=== PATIENT | female | born 1980 | race Caucasian/White ===

== ENCOUNTER → 2016-10-31 | Outpatient (CLI) | payer OTHER ==
[~2016-10-31] VITALS: Ht 165.1 cm; Wt 68.2 kg
[~2016-10-31] MED LIST: ACHD5005 PO; ACHYD1T PO; ADAL40PE2 SQ; ALPR0.254 PO; AMIT25TA9 PO; ASPI1TAB17 PO; ASPI1TAB22 PO; AZAT50TA16 PO; BCP PO; BUDE9TAB PO; CALC625T66 PO; CIPR500T4 PO; CIPR500T78 PO; CPR250T PO; CPR500T PO; DCS100C PO; DICY10CA26 PO; DIPH1TAB25 PO; DIPH25TA82 PO; DIPH50CA33 PO; DULO30CA3 PO; DULO60CA58 PO; ESTR-19 PO; ESTR-6 PO; FIBER SUPPLEMENT PO; FLUO10CA19 PO; FLUO20CA25 PO; FLUO40CA PO; FOLI-88 PO; HYDR-2890 PO; HYDR-3583 PO; HYDR-3714 PO; HYDR-3720 PO; HYDR-757 PO; HYDR1TAB66 PO; IBUP800T26 PO; KETO10TA77 PO; LACT1CAP8 PO; LINA145C PO; LORA10TA7 PO; LUBI8CAP PO; MESA1.2T PO; MESA1.2T2 PO; MESA800T PO; METO-272 PO; METR500T PO; METR500T17 PO; MINASTRIN 24 FE PO; MSL250CCR PO; MSL400TEC PO; MULT1CAP27 PO; NORE-43 PO; NORE1TAB95 PO; NORG1TAB7 PO; NORT25CA PO; NRT10C PO; NS IV 1000 ML 1,000 ML IV ONE; OMEP20CA12 PO; OXC5T PO; OXYC-199 PO; OXYC-272 PO; OXYC10TA7 PO; OXYC5CAP4 PO; PANT40TA PO; PNT40TEC PO; POTA99TA7 PO; PRD10T PO; PRD20T PO; PRM25T PO; PROBIOTIC1 EACH PO; PROCHLORPERAZINE 10 MG/2ML INJ (COMPAZINE) IV ONE; PS30T PO; RANI150T90 PO; SPRINTEC PO; SULF1TAB35 PO; SUMA100T2 PO; TMZP15C PO; VENL150C PO; VENL150C53 PO; [UNRECOGNIZED DRUG - CODE] PO; [UNRECOGNIZED DRUG - OTHER] PO; [UNRECOGNIZED DRUG - REMARK] PO; fentaNYL INJECTION 100 MCG/2 ML AMP IV ONE; fentaNYL INJECTION 100 MCG/2 ML AMP IV PRN; fentaNYL INJECTION 100 MCG/2 ML AMP IVP ONE; linzess PO; methylPREDNISolone 125 MG (Solu-MEDROL) VIAL IV ONE
[2016-10-31 10:30] VITALS: BP 137/93
[2016-10-31 10:44] LABS: MEAN PLATELET VOLUME 10.6 FL (7.4-10.4); RED BLOOD COUNT 4.81 10^6/uL (4.35-5.85); WHITE BLOOD COUNT 4.5 10^3/uL (4.3-11.0)
[2016-10-31 11:05] LABS: ALANINE AMINOTRANSFERASE 12 U/L (0-55); ALBUMIN 4.3 G/DL (3.2-4.5); ANION GAP 9 MMOL/L (5-14); ASPARTATE AMINO TRANSFERASE 15 U/L (5-34); BILIRUBIN,TOTAL 0.3 MG/DL (0.1-1.0); BLOOD UREA NITROGEN 9 MG/DL (7-18); BUN/CREATININE RATIO 12; CALCIUM 9.2 MG/DL (8.5-10.1); CARBON DIOXIDE 27 MMOL/L (21-32); CHLORIDE 105 MMOL/L (98-107); CREATININE SERUM 0.76 MG/DL (0.60-1.30); GFR ESTIMATED > 60; GLUCOSE 83 MG/DL (70-105); POTASSIUM 3.5 MMOL/L (3.6-5.0); SODIUM 141 MMOL/L (135-145); TOTAL PROTEIN 7.3 G/DL (6.4-8.2)
[2016-10-31 13:00] VITALS: BP 137/93
== END ==
LOC: SDC 10:16
PROVIDERS: ATTEND Nurse Practitioner Family
DX: K50.90 Crohn's disease, unspecified, without complications (principal)
CPT/HCPCS: 36415; 80053; 85027; 96360

== ENCOUNTER 2016-11-26 10:51 | Outpatient (CLI) | payer OTHER ==
[~2016-11-26] VITALS: Ht 165.1 cm; Wt 68.2 kg
[~2016-11-26 10:51] MED LIST changes: -NS IV 1000 ML 1,000 ML IV ONE; -PROCHLORPERAZINE 10 MG/2ML INJ (COMPAZINE) IV ONE; -fentaNYL INJECTION 100 MCG/2 ML AMP IV ONE; -fentaNYL INJECTION 100 MCG/2 ML AMP IV PRN; -fentaNYL INJECTION 100 MCG/2 ML AMP IVP ONE; -methylPREDNISolone 125 MG (Solu-MEDROL) VIAL IV ONE
[2016-11-26 10:53] VITALS: BP 152/92
[2016-11-26] MEDS ORDERED: methylPREDNISolone 125 MG (Solu-MEDROL) VIAL IV ONE (11:15)
[2016-11-26] MEDS ORDERED: fentaNYL INJECTION 100 MCG/2 ML AMP IV ONE ×2 (11:15→11:30)
[2016-11-26] MEDS ORDERED: PROMETHAZINE INJ 25 MG/ML (PHENERGAN) AMP IV ONE (11:15)
[2016-11-26] MEDS ORDERED: NS IV 1000 ML 1,000 ML IV ONE (11:15)
[2016-11-26] MEDS ORDERED: CATHETER FLUSH 10 ML SYR IV PRN (11:15)
[2016-11-26 12:15] LABS: ANION GAP 9 MMOL/L (5-14); BLOOD UREA NITROGEN 8 MG/DL (7-18); BUN/CREATININE RATIO 11; CARBON DIOXIDE 22 MMOL/L (21-32); CHLORIDE 108 MMOL/L (98-107); GFR ESTIMATED > 60; GLUCOSE 101 MG/DL (70-105); POTASSIUM 3.8 MMOL/L (3.6-5.0); SODIUM 139 MMOL/L (135-145)
== END 2016-11-26 12:35 | disposition home or self-care (01) ==
LOC: SDC 10:51
PROVIDERS: ATTEND Nurse Practitioner Family
DX: K50.90 Crohn's disease, unspecified, without complications (principal)
CPT/HCPCS: 36415; 80048; 85014; 85018

== ENCOUNTER → 2017-01-01 | Outpatient (CLI) | payer OTHER ==
[~2017-01-01] VITALS: Ht 165.1 cm; Wt 68.2 kg
[~2017-01-01] MED LIST changes: +NS IV 1000 ML 1,000 ML IV ONE; +NS IV 1000 ML 1,000 ML ONE; +ONDANSETRON 4 MG/2 ML (SDV) Z0FRAN IV ONE; +ONDANSETRON 4 MG/2 ML (SDV) Z0FRAN IV PRN; +ONDANSETRON 4 MG/2 ML (SDV) Z0FRAN ONE; +fentaNYL INJECTION 100 MCG/2 ML AMP IV SCH; +fentaNYL INJECTION 100 MCG/2 ML AMP ONE; +methylPREDNISolone 125 MG (Solu-MEDROL) VIAL IV ONE; +methylPREDNISolone 125 MG (Solu-MEDROL) VIAL ONE
[2017-01-01 12:50] VITALS: BP 143/93
== END ==
LOC: SDC 11:51
PROVIDERS: ATTEND Nurse Practitioner Family
DX: K50.90 Crohn's disease, unspecified, without complications (principal)
CPT/HCPCS: 96360; 96374; 96375

== ENCOUNTER → 2017-01-02 | Outpatient (CLI) | payer OTHER ==
[~2017-01-02] VITALS: Ht 165.1 cm; Wt 68.2 kg
[~2017-01-02] MED LIST changes: +CATHETER FLUSH 10 ML SYR IV PRN; +IOHEXOL 350 MG/ML 100 ML (OMNIPAQUE 350) VIAL IV ONE; +NS 100 ML (IVPB) BAG IV ONE; -NS IV 1000 ML 1,000 ML ONE; -ONDANSETRON 4 MG/2 ML (SDV) Z0FRAN ONE; +fentaNYL INJECTION 100 MCG/2 ML AMP IV PRN; -fentaNYL INJECTION 100 MCG/2 ML AMP IV SCH; -fentaNYL INJECTION 100 MCG/2 ML AMP ONE; -methylPREDNISolone 125 MG (Solu-MEDROL) VIAL IV ONE; -methylPREDNISolone 125 MG (Solu-MEDROL) VIAL ONE
--- NOTE | 2017-01-02 13:21 | Diagnostic Imaging Report ---
PROCEDURE: CT abdomen and pelvis with contrast. TECHNIQUE: Multiple contiguous axial images were obtained through the abdomen and pelvis after administration of intravenous contrast. INDICATION: Right lower quadrant pain radiating to the right chest, history of Crohn's disease. COMPARISON: 09/24/2015. DISCUSSION: The lung bases are well aerated. Normal heart size. No pleural or pericardial fluid. The gallbladder is contracted. The liver, stomach, pancreas, spleen, adrenal glands, kidneys, and urinary bladder are unremarkable. The uterus is surgically absent. No obstruction, pneumatosis, or pneumoperitoneum. There is no marked inflammatory change or wall thickening noted within the large or small bowel to suggest the presence of active Crohn's disease at this time. Shotty mesenteric lymph nodes are stable. Mild constipation is noted within the proximal colon. No ascites. No acute osseous abnormality identified. IMPRESSION: 1. No inflammatory process identified to suggest active Crohn's disease at this time. 2. Mild constipation within the proximal colon. Dictated by: Dictated on workstation # [id number]
[2017-01-02 13:51] LABS: MEAN PLATELET VOLUME 10.6 FL (7.4-10.4); RED BLOOD COUNT 4.09 10^6/uL (4.35-5.85); RED CELL DISTRIBUTION WIDTH 14.7 % (10.0-14.5); WHITE BLOOD COUNT 17.3 10^3/uL (4.3-11.0)
[2017-01-02 14:12] LABS: ALANINE AMINOTRANSFERASE 11 U/L (0-55); ALBUMIN 3.8 GM/DL (3.2-4.5); ANION GAP 13 MMOL/L (5-14); ASPARTATE AMINO TRANSFERASE 12 U/L (5-34); BILIRUBIN,TOTAL < 0.1 MG/DL (0.1-1.0); BLOOD UREA NITROGEN 11 MG/DL (7-18); BUN/CREATININE RATIO 16 (0-20); CALCIUM 9.1 MG/DL (8.5-10.1); CARBON DIOXIDE 21 MMOL/L (21-32); CHLORIDE 105 MMOL/L (98-107); CREATININE SERUM 0.69 MG/DL (0.60-1.30); GFR ESTIMATED > 60; GLUCOSE 94 MG/DL (70-105); HEMOLYSIS 4 (-100-29); ICTERUS 0.1 (-100-1.9); LIPEMIA 24 (-100-49); POTASSIUM 3.4 MMOL/L (3.6-5.0); SODIUM 139 MMOL/L (135-145)
[2017-01-02 15:19] VITALS: BP 151/101
== END ==
LOC: RAD 12:24
PROVIDERS: ATTEND Nurse Practitioner Family
DX: R10.11 Right upper quadrant pain (principal); R10.31 Right lower quadrant pain
CPT/HCPCS: 36415; 74177; 80053; 85027

== ENCOUNTER 2017-03-30 13:10 | Outpatient (RCR) | payer OTHER ==
[2017-02-18 12:19] LABS: ALANINE AMINOTRANSFERASE 20 U/L (0-55); ALBUMIN 4.5 GM/DL (3.2-4.5); ANION GAP 10 MMOL/L (5-14); ASPARTATE AMINO TRANSFERASE 16 U/L (5-34); BILIRUBIN,TOTAL 0.2 MG/DL (0.1-1.0); BLOOD UREA NITROGEN 13 MG/DL (7-18); BUN/CREATININE RATIO 18; CALCIUM 9.8 MG/DL (8.5-10.1); CARBON DIOXIDE 26 MMOL/L (21-32); CHLORIDE 105 MMOL/L (98-107); CREATININE SERUM 0.71 MG/DL (0.60-1.30); GFR ESTIMATED > 60; GLUCOSE 83 MG/DL (70-105); POTASSIUM 3.8 MMOL/L (3.6-5.0); SODIUM 141 MMOL/L (135-145); TOTAL PROTEIN 7.8 GM/DL (6.4-8.2)
[2017-02-18 12:55] VITALS: BP 139/96
[~2017-03-30] VITALS: Ht 165.1 cm; Wt 68.2 kg
[~2017-03-30 13:10] MED LIST changes: -CATHETER FLUSH 10 ML SYR IV PRN; -IOHEXOL 350 MG/ML 100 ML (OMNIPAQUE 350) VIAL IV ONE; +NFNEB10T PO; -NS 100 ML (IVPB) BAG IV ONE; +NS IV 1000 ML 1,000 ML ONE; -ONDANSETRON 4 MG/2 ML (SDV) Z0FRAN IV PRN; +PROMETHAZINE INJ 25 MG/ML (PHENERGAN) AMP IVP ONE; +PROMETHAZINE INJ 25 MG/ML (PHENERGAN) AMP ONE; +fentaNYL INJECTION 100 MCG/2 ML AMP IV ONE; -fentaNYL INJECTION 100 MCG/2 ML AMP IV PRN; +methylPREDNISolone 125 MG (Solu-MEDROL) VIAL IV ONE
[2017-03-30] MEDS ORDERED: fentaNYL INJECTION 100 MCG/2 ML AMP IV PRN (13:30)
[2017-03-30] MEDS ORDERED: PROMETHAZINE INJ 25 MG/ML (PHENERGAN) AMP IV PRN (13:30)
[2017-03-30] MEDS ORDERED: methylPREDNISolone 125 MG (Solu-MEDROL) VIAL IV ONE (13:30)
[2017-03-30] MEDS ORDERED: ONDANSETRON 4 MG/2 ML (SDV) Z0FRAN IV PRN (13:45)
[2017-03-30] MEDS ORDERED: NS IV 1000 ML 1,000 ML IV ONE (13:45)
[2017-03-30 14:06] VITALS: BP 149/99
[2017-03-30 15:05] VITALS: BP 149/99
== END 2017-04-18 | disposition home or self-care (01) ==
LOC: SDC 13:10
PROVIDERS: ATTEND Nurse Practitioner Family
DX: K50.90 Crohn's disease, unspecified, without complications (principal)
CPT/HCPCS: 36415; 80053; 96360; 96365; 96375

== ENCOUNTER 2017-05-07 09:44 | Outpatient (RCR) | payer OTHER ==
[~2017-05-07] VITALS: Ht 165.1 cm; Wt 68.2 kg
[~2017-05-07 09:44] MED LIST changes: -METO-272 PO; +METO-370 PO; -NS IV 1000 ML 1,000 ML IV ONE; -NS IV 1000 ML 1,000 ML ONE; -ONDANSETRON 4 MG/2 ML (SDV) Z0FRAN IV ONE; -PROMETHAZINE INJ 25 MG/ML (PHENERGAN) AMP IVP ONE; -PROMETHAZINE INJ 25 MG/ML (PHENERGAN) AMP ONE; -fentaNYL INJECTION 100 MCG/2 ML AMP IV ONE; -methylPREDNISolone 125 MG (Solu-MEDROL) VIAL IV ONE
[2017-05-07] MEDS ORDERED: methylPREDNISolone 125 MG (Solu-MEDROL) VIAL IV ONE (10:00)
[2017-05-07] MEDS ORDERED: ONDANSETRON 4 MG/2 ML (SDV) Z0FRAN IV PRN (10:00)
[2017-05-07] MEDS ORDERED: NS IV 1000 ML 1,000 ML IV NR (10:00)
[2017-05-07] MEDS: fentaNYL INJECTION 100 MCG/2 ML AMP IV PRN ×2 (10:10→10:43)
[2017-05-07] MEDS ORDERED: PROMETHAZINE INJ 25 MG/ML (PHENERGAN) AMP IVP ONE ×2 (10:15→11:45)
[2017-05-07 10:53] VITALS: BP 149/102
[2017-05-07] MEDS ORDERED: fentaNYL INJECTION 100 MCG/2 ML AMP IVP ONE (12:45)
[2017-05-07] MEDS ORDERED: NS IV 500 ML 500 ML IV SCH (12:45)
== END 2017-05-07 13:23 | disposition home or self-care (01) ==
LOC: SDC 09:44
PROVIDERS: ATTEND Nurse Practitioner Family
DX: K50.90 Crohn's disease, unspecified, without complications (principal)
CPT/HCPCS: 96360; 96361; 96374; 96375; 96376

== ENCOUNTER → 2017-06-08 | Outpatient (CLI) | payer OTHER ==
[~2017-06-08] VITALS: Ht 165.1 cm; Wt 61.2 kg
[~2017-06-08] MED LIST changes: +NS IV 1000 ML 1,000 ML IV NR; +NS IV 1000 ML 1,000 ML ONE; +ONDANSETRON 4 MG/2 ML (SDV) Z0FRAN IV PRN; +PROMETHAZINE INJ 25 MG/ML (PHENERGAN) AMP IV PRN; +PROMETHAZINE INJ 25 MG/ML (PHENERGAN) AMP ONE; +methylPREDNISolone 125 MG (Solu-MEDROL) VIAL IV NR; +methylPREDNISolone 125 MG (Solu-MEDROL) VIAL ONE
[2017-06-08 11:34] VITALS: BP 159/104
[2017-06-08] MEDS: fentaNYL INJECTION 100 MCG/2 ML AMP ONE (12:15)
[2017-06-08] MEDS: fentaNYL INJECTION 100 MCG/2 ML AMP IV PRN ×2 (12:37→12:58)
[2017-06-08 13:10] VITALS: BP 159/104
== END ==
LOC: SDC 11:30
PROVIDERS: ATTEND Nurse Practitioner Family
DX: K50.90 Crohn's disease, unspecified, without complications (principal); R11.0 Nausea
CPT/HCPCS: 96360; 96375

== ENCOUNTER → 2017-07-07 | Outpatient (CLI) | payer OTHER ==
[~2017-07-07] VITALS: Ht 165.1 cm; Wt 61.2 kg
[~2017-07-07] MED LIST changes: -NS IV 1000 ML 1,000 ML ONE; -PROMETHAZINE INJ 25 MG/ML (PHENERGAN) AMP ONE; -methylPREDNISolone 125 MG (Solu-MEDROL) VIAL ONE
[2017-07-07 13:30] VITALS: BP 160/102
[2017-07-07] MEDS: fentaNYL INJECTION 100 MCG/2 ML AMP IV PRN ×2 (14:08→15:05)
[2017-07-07 15:40] VITALS: BP 160/102
== END ==
LOC: SDC 13:28
PROVIDERS: ATTEND Nurse Practitioner Family
DX: K52.9 Noninfective gastroenteritis and colitis, unspecified (principal)
CPT/HCPCS: 96360; 96367; 96375

== ENCOUNTER → 2017-08-07 | Outpatient (CLI) | payer OTHER ==
[~2017-08-07] VITALS: Ht 165.1 cm; Wt 61.2 kg
[~2017-08-07] MED LIST changes: -NS IV 1000 ML 1,000 ML IV NR; +NS IV 1000 ML 1,000 ML ONE; +NS IV 1000 ML IV ONE; +ONDANSETRON 4 MG/2 ML (SDV) Z0FRAN IV ONE; -ONDANSETRON 4 MG/2 ML (SDV) Z0FRAN IV PRN; +PROMETHAZINE INJ 25 MG/ML (PHENERGAN) AMP IV ONE; -PROMETHAZINE INJ 25 MG/ML (PHENERGAN) AMP IV PRN; +fentaNYL INJECTION 100 MCG/2 ML AMP IV ONE; -methylPREDNISolone 125 MG (Solu-MEDROL) VIAL IV NR; +methylPREDNISolone 125 MG (Solu-MEDROL) VIAL IV ONE
[2017-08-07 14:27] VITALS: BP 135/89
== END ==
LOC: SDC 12:13
PROVIDERS: ATTEND Nurse Practitioner Family
DX: K50.90 Crohn's disease, unspecified, without complications (principal)
CPT/HCPCS: 96360; 96367; 96375

== ENCOUNTER 2017-10-05 13:04 | Outpatient (CLI) | payer OTHER ==
[~2017-10-05] VITALS: Ht 165.1 cm; Wt 61.2 kg
[~2017-10-05 13:04] MED LIST changes: -NS IV 1000 ML 1,000 ML ONE; -NS IV 1000 ML IV ONE; -ONDANSETRON 4 MG/2 ML (SDV) Z0FRAN IV ONE; -PROMETHAZINE INJ 25 MG/ML (PHENERGAN) AMP IV ONE; -fentaNYL INJECTION 100 MCG/2 ML AMP IV ONE; -methylPREDNISolone 125 MG (Solu-MEDROL) VIAL IV ONE
[2017-10-05 13:08] VITALS: BP 139/88
[2017-10-05] MEDS ORDERED: PROMETHAZINE INJ 25 MG/ML (PHENERGAN) AMP IV ONE (13:30)
[2017-10-05] MEDS ORDERED: methylPREDNISolone 125 MG (Solu-MEDROL) VIAL IV ONE (13:30)
[2017-10-05] MEDS ORDERED: ONDANSETRON 4 MG/2 ML (SDV) Z0FRAN IV ONE (13:30)
[2017-10-05] MEDS ORDERED: NS IV 1000 ML 1,000 ML IV ONE (13:30)
[2017-10-05] MEDS: fentaNYL INJECTION 100 MCG/2 ML AMP IV PRN ×2 (13:42→14:17)
== END 2017-10-05 14:40 | disposition home or self-care (01) ==
LOC: SDC 13:04
PROVIDERS: ATTEND Nurse Practitioner Family
DX: K50.90 Crohn's disease, unspecified, without complications (principal)
CPT/HCPCS: 96360; 96375; 96376

== ENCOUNTER → 2017-10-16 | Day surgery (SDC) | payer OTHER ==
[~2017-10-16] VITALS: Ht 165.1 cm; Wt 61.2 kg
[~2017-10-16] MED LIST changes: +FENT1PAT8 TD; +METO10TA3 PO; +NS IV 1000 ML 1,000 ML IV ONE; +NS IV 1000 ML 1,000 ML ONE; +ONDANSETRON 4 MG/2 ML (SDV) Z0FRAN IV PRN; +OXYC15TA79 PO; +PROMETHAZINE INJ 25 MG/ML (PHENERGAN) AMP IV PRN; +methylPREDNISolone 125 MG (Solu-MEDROL) VIAL IV ONE
[2017-10-16 14:00] VITALS: BP 144/77
[2017-10-16] MEDS: fentaNYL INJECTION 100 MCG/2 ML AMP IV PRN ×2 (14:27→15:15)
[2017-10-16 15:33] VITALS: BP 144/77
== END ==
LOC: SDC 13:43
PROVIDERS: ATTEND Nurse Practitioner Family
DX: K50.90 Crohn's disease, unspecified, without complications (principal)

== ENCOUNTER → 2017-11-02 | Outpatient (CLI) | payer OTHER ==
[~2017-11-02] VITALS: Ht 165.1 cm; Wt 63.5 kg
[~2017-11-02] MED LIST changes: +CHOL210P2 PO; +FAMO20TA5 PO; +FEN12TD TD; +ONDANSETRON 4 MG/2 ML (SDV) Z0FRAN ONE; +PROMETHAZINE INJ 25 MG/ML (PHENERGAN) AMP ONE; +fentaNYL INJECTION 100 MCG/2 ML AMP ONE; +methylPREDNISolone 125 MG (Solu-MEDROL) VIAL ONE
[2017-11-02 09:40] VITALS: BP 141/93
[2017-11-02] MEDS: fentaNYL INJECTION 100 MCG/2 ML AMP ONE (10:06)
[2017-11-02] MEDS: fentaNYL INJECTION 100 MCG/2 ML AMP IV PRN ×3 (10:30→11:19)
[2017-11-02 11:45] VITALS: BP 141/93
== END ==
LOC: SDC 09:12
PROVIDERS: ATTEND Nurse Practitioner Family
DX: K50.90 Crohn's disease, unspecified, without complications (principal); R11.0 Nausea
CPT/HCPCS: 96360; 96361; 96375

== ENCOUNTER → 2017-11-23 | Outpatient (CLI) | payer OTHER ==
[~2017-11-23] VITALS: Ht 165.1 cm; Wt 63.5 kg
[~2017-11-23] MED LIST changes: +NS IV 1000 ML 1,000 ML IV NR; -NS IV 1000 ML 1,000 ML IV ONE; -NS IV 1000 ML 1,000 ML ONE; -ONDANSETRON 4 MG/2 ML (SDV) Z0FRAN ONE; -PROMETHAZINE INJ 25 MG/ML (PHENERGAN) AMP ONE; -fentaNYL INJECTION 100 MCG/2 ML AMP ONE; +methylPREDNISolone 125 MG (Solu-MEDROL) VIAL IV NR; -methylPREDNISolone 125 MG (Solu-MEDROL) VIAL IV ONE; -methylPREDNISolone 125 MG (Solu-MEDROL) VIAL ONE
[2017-11-23] MEDS: fentaNYL INJECTION 100 MCG/2 ML AMP IV PRN ×2 (11:06→11:35)
[2017-11-23 11:50] VITALS: BP 136/90
== END ==
LOC: SDC 09:45
PROVIDERS: ATTEND Nurse Practitioner Family
DX: K50.90 Crohn's disease, unspecified, without complications (principal); R19.7 Diarrhea, unspecified; R11.0 Nausea
CPT/HCPCS: 96361; 96374; 96375

== ENCOUNTER → 2018-03-02 | Outpatient (RCR) | payer OTHER ==
[2017-12-02 14:50] VITALS: BP 147/90
[2017-12-31] MEDS: fentaNYL INJECTION 100 MCG/2 ML AMP IV PRN ×2 (13:38→14:59)
[2018-01-26] MEDS: NS IV 1000 ML 1,000 ML IV SCH (10:58)
[2018-01-26] MEDS: PROMETHAZINE INJ 25 MG/ML (PHENERGAN) AMP IVP PRN (11:10)
[2018-01-26] MEDS: fentaNYL INJECTION 100 MCG/2 ML AMP IV PRN ×2 (11:12→11:55)
[2018-01-26 12:10] VITALS: BP 140/94
[2018-02-08] MEDS: NS IV 1000 ML 1,000 ML IV SCH (09:30)
[2018-02-08] MEDS: fentaNYL INJECTION 100 MCG/2 ML AMP IV PRN ×2 (09:45→10:30)
[2018-02-08] MEDS: PROMETHAZINE INJ 25 MG/ML (PHENERGAN) AMP IVP PRN (09:47)
[2018-02-08 10:47] VITALS: BP 157/104
[2018-02-09] MEDS: NS IV 1000 ML 1,000 ML IV SCH (08:20)
[2018-02-09] MEDS: fentaNYL INJECTION 100 MCG/2 ML AMP IV PRN ×2 (08:25→09:01)
[2018-02-09] MEDS: ONDANSETRON 4 MG/2 ML (SDV) Z0FRAN IV PRN (08:27)
[2018-02-09 09:23] VITALS: BP 149/98
[2018-02-12 13:00] VITALS: BP 160/95
[2018-02-12] MEDS: NS IV 1000 ML 1,000 ML IV SCH (13:15)
[2018-02-12] MEDS: fentaNYL INJECTION 100 MCG/2 ML AMP IV PRN ×2 (13:33→14:20)
[2018-02-12] MEDS: PROMETHAZINE INJ 25 MG/ML (PHENERGAN) AMP IVP PRN (13:33)
[2018-02-12 14:23] VITALS: BP 160/95
[2018-03-01] MEDS: NS IV 1000 ML 1,000 ML IV SCH (11:03)
[2018-03-01] MEDS: methylPREDNISolone 125 MG (Solu-MEDROL) VIAL IV PRN (11:04)
[2018-03-01] MEDS: fentaNYL INJECTION 100 MCG/2 ML AMP IV PRN ×2 (11:07→11:43)
[2018-03-01] MEDS: PROMETHAZINE INJ 25 MG/ML (PHENERGAN) AMP IVP PRN (11:09)
[2018-03-01 11:18] VITALS: BP 152/104
[~2018-03-02] VITALS: Ht 165.1 cm; Wt 63.5 kg
[~2018-03-02] MED LIST changes: -NS IV 1000 ML 1,000 ML IV NR; +NS IV 1000 ML 1,000 ML IV ONE; +NS IV 1000 ML 1,000 ML IV SCH; +NS IV 1000 ML 1,000 ML ONE; +ONDANSETRON 4 MG/2 ML (SDV) Z0FRAN IV ONE; +ONDANSETRON 4 MG/2 ML (SDV) Z0FRAN IV SCH; -PROMETHAZINE INJ 25 MG/ML (PHENERGAN) AMP IV PRN; +PROMETHAZINE INJ 25 MG/ML (PHENERGAN) AMP IVP ONE; +PROMETHAZINE INJ 25 MG/ML (PHENERGAN) AMP ONE; +fentaNYL INJECTION 100 MCG/2 ML AMP IV ONE; +fentaNYL INJECTION 100 MCG/2 ML AMP IV PRN; +fentaNYL INJECTION 100 MCG/2 ML AMP IVP ONE; -methylPREDNISolone 125 MG (Solu-MEDROL) VIAL IV NR; +methylPREDNISolone 125 MG (Solu-MEDROL) VIAL IV ONE; +methylPREDNISolone 125 MG (Solu-MEDROL) VIAL IV SCH
[2018-03-02] MEDS: NS IV 1000 ML 1,000 ML IV SCH (11:08)
[2018-03-02] MEDS: fentaNYL INJECTION 100 MCG/2 ML AMP IV PRN ×3 (11:09→12:12)
[2018-03-02] MEDS: ONDANSETRON 4 MG/2 ML (SDV) Z0FRAN IV PRN ×2 (11:09→11:16)
[2018-03-02] MEDS: PROMETHAZINE INJ 25 MG/ML (PHENERGAN) AMP IVP PRN ×2 (11:09→11:16)
[2018-03-02 11:38] VITALS: BP 161/104
[2018-03-02] MEDS: methylPREDNISolone 125 MG (Solu-MEDROL) VIAL IV PRN (12:12)
== END | disposition home or self-care (01) ==
LOC: SDC 12-02 14:41
PROVIDERS: ATTEND Family Medicine
DX: K50.90 Crohn's disease, unspecified, without complications (principal)
CPT/HCPCS: 96361; 96374; 96375; 96376

== ENCOUNTER 2018-04-13 08:18 | Outpatient (RCR) | payer OTHER ==
[2018-03-03] MEDS: NS IV 1000 ML 1,000 ML IV PRN (09:10)
[2018-03-03 09:20] VITALS: BP 150/107
[2018-03-03] MEDS: PROMETHAZINE INJ 25 MG/ML (PHENERGAN) AMP IV PRN (10:13)
[2018-03-03] MEDS: fentaNYL INJECTION 100 MCG/2 ML AMP IV PRN ×2 (10:13→10:49)
[2018-03-10 08:05] VITALS: BP 142/92
[2018-03-10] MEDS: NS IV 1000 ML 1,000 ML IV PRN (08:20)
[2018-03-10] MEDS: PROMETHAZINE INJ 25 MG/ML (PHENERGAN) AMP IV PRN ×2 (08:21→08:32)
[2018-03-10] MEDS: ONDANSETRON 4 MG/2 ML (SDV) Z0FRAN IV PRN ×2 (08:21→08:32)
[2018-03-10] MEDS: fentaNYL INJECTION 100 MCG/2 ML AMP IV PRN ×2 (08:21→08:30)
[2018-03-10] MEDS: methylPREDNISolone 125 MG (Solu-MEDROL) VIAL IV PRN (08:21)
[2018-03-10 09:50] VITALS: BP 142/92
[2018-03-11] MEDS: ONDANSETRON 4 MG/2 ML (SDV) Z0FRAN IV PRN (09:19)
[2018-03-11] MEDS: fentaNYL INJECTION 100 MCG/2 ML AMP IV PRN ×2 (09:22→10:16)
[2018-03-11] MEDS: methylPREDNISolone 125 MG (Solu-MEDROL) VIAL IV PRN (09:24)
[2018-03-11] MEDS: PROMETHAZINE INJ 25 MG/ML (PHENERGAN) AMP IV PRN ×2 (09:32→10:25)
[2018-03-11 10:55] VITALS: BP 141/90
[2018-04-07] MEDS: fentaNYL INJECTION 100 MCG/2 ML AMP IV PRN ×2 (11:52→12:00)
[2018-04-07] MEDS: PROMETHAZINE INJ 25 MG/ML (PHENERGAN) AMP IV PRN ×2 (11:52→11:58)
[2018-04-07] MEDS: methylPREDNISolone 125 MG (Solu-MEDROL) VIAL IV PRN (11:52)
[2018-04-07] MEDS: NS IV 1000 ML 1,000 ML IV PRN (11:52)
[2018-04-07] MEDS: ONDANSETRON 4 MG/2 ML (SDV) Z0FRAN IV PRN (11:52)
[2018-04-07 12:26] VITALS: BP 124/92
[2018-04-12 09:00] VITALS: BP 144/103
[2018-04-12] MEDS: NS IV 1000 ML 1,000 ML IV PRN (09:11)
[2018-04-12] MEDS: fentaNYL INJECTION 100 MCG/2 ML AMP IV PRN ×2 (09:11→10:05)
[2018-04-12] MEDS: ONDANSETRON 4 MG/2 ML (SDV) Z0FRAN IV PRN ×2 (09:11→10:04)
[2018-04-12] MEDS: PROMETHAZINE INJ 25 MG/ML (PHENERGAN) AMP IV PRN ×2 (09:20→10:12)
[2018-04-12 10:20] VITALS: BP 148/101
[~2018-04-13] VITALS: Ht 165.1 cm; Wt 63.5 kg
[~2018-04-13 08:18] MED LIST changes: +HYDR-4226 PO; -HYDR-757 PO; -NS IV 1000 ML 1,000 ML IV ONE; -NS IV 1000 ML 1,000 ML IV SCH; -ONDANSETRON 4 MG/2 ML (SDV) Z0FRAN IV ONE; -ONDANSETRON 4 MG/2 ML (SDV) Z0FRAN IV PRN; -ONDANSETRON 4 MG/2 ML (SDV) Z0FRAN IV SCH; -PROMETHAZINE INJ 25 MG/ML (PHENERGAN) AMP IVP ONE; -PROMETHAZINE INJ 25 MG/ML (PHENERGAN) AMP ONE; -fentaNYL INJECTION 100 MCG/2 ML AMP IV ONE; -fentaNYL INJECTION 100 MCG/2 ML AMP IV PRN; -fentaNYL INJECTION 100 MCG/2 ML AMP IVP ONE; -methylPREDNISolone 125 MG (Solu-MEDROL) VIAL IV ONE; -methylPREDNISolone 125 MG (Solu-MEDROL) VIAL IV SCH
[2018-04-13 08:19] VITALS: BP 130/97
[2018-04-13] MEDS: ONDANSETRON 4 MG/2 ML (SDV) Z0FRAN IV PRN ×2 (08:35→09:16)
[2018-04-13] MEDS: PROMETHAZINE INJ 25 MG/ML (PHENERGAN) AMP IV PRN ×2 (08:35→09:16)
[2018-04-13] MEDS: fentaNYL INJECTION 100 MCG/2 ML AMP IV PRN ×2 (08:35→09:19)
[2018-04-13] MEDS: NS IV 1000 ML 1,000 ML IV PRN (08:35)
== END 2018-04-13 10:03 | disposition home or self-care (01) ==
LOC: SDC 08:18
PROVIDERS: ATTEND Family Medicine
DX: K50.90 Crohn's disease, unspecified, without complications (principal)
CPT/HCPCS: 96361; 96374; 96375; 96376

== ENCOUNTER 2018-04-29 16:06 | Outpatient (RCR) | payer OTHER ==
[~2018-04-29] VITALS: Ht 165.1 cm; Wt 63.5 kg
[~2018-04-29 16:06] MED LIST changes: -NS IV 1000 ML 1,000 ML ONE
[2018-04-29] MEDS ORDERED: NS IV 1000 ML 1,000 ML ONE (16:21)
[2018-04-29] MEDS ORDERED: methylPREDNISolone 125 MG (Solu-MEDROL) VIAL IVP NR (16:26)
[2018-04-29] MEDS ORDERED: PROMETHAZINE INJ 25 MG/ML (PHENERGAN) AMP IVP PRN (16:30)
[2018-04-29] MEDS ORDERED: NS IV 1000 ML 1,000 ML IV SCH (16:30)
[2018-04-29] MEDS ORDERED: ONDANSETRON 4 MG/2 ML (SDV) Z0FRAN IVP PRN (16:30)
[2018-04-29] MEDS: fentaNYL INJECTION 100 MCG/2 ML AMP IVP PRN ×2 (16:44→17:30)
[2018-04-29 18:25] VITALS: BP 156/101
== END 2018-04-29 17:15 | disposition home or self-care (01) ==
LOC: SDC 16:06
PROVIDERS: ATTEND Nurse Practitioner Family
DX: K50.90 Crohn's disease, unspecified, without complications (principal)
CPT/HCPCS: 96361; 96374; 96375; 96376

== ENCOUNTER 2018-06-03 13:29 | Outpatient (CLI) | payer OTHER ==
[~2018-06-03] VITALS: Ht 165.1 cm; Wt 63.5 kg
[2018-06-03] MEDS ORDERED: PROMETHAZINE INJ 25 MG/ML (PHENERGAN) AMP IV PRN (14:00)
[2018-06-03] MEDS ORDERED: PROMETHAZINE INJ 25 MG/ML (PHENERGAN) AMP IV ONE (14:00)
[2018-06-03] MEDS ORDERED: ONDANSETRON 4 MG/2 ML (SDV) Z0FRAN IV ONE (14:00)
[2018-06-03] MEDS ORDERED: NS IV 1000 ML 1,000 ML IV ONE (14:00)
[2018-06-03] MEDS ORDERED: ONDANSETRON 4 MG/2 ML (SDV) Z0FRAN IV PRN (14:00)
[2018-06-03] MEDS ORDERED: fentaNYL INJECTION 100 MCG/2 ML AMP IV PRN ×2 (14:00)
[2018-06-03 15:20] VITALS: BP 127/92
== END 2018-06-03 15:20 | disposition home or self-care (01) ==
LOC: SDC 13:29
PROVIDERS: ATTEND Nurse Practitioner Family
DX: K50.90 Crohn's disease, unspecified, without complications (principal)
CPT/HCPCS: 96361; 96374; 96375; 96376

== ENCOUNTER → 2018-07-15 | Outpatient (CLI) | payer BC ==
[~2018-07-15] VITALS: Ht 165.1 cm; Wt 63.5 kg
[~2018-07-15] MED LIST changes: +NS IV 1000 ML 1,000 ML IV ONE; +NS IV 1000 ML 1,000 ML ONE; +ONDANSETRON 4 MG/2 ML (SDV) Z0FRAN IV ONE; +ONDANSETRON 4 MG/2 ML (SDV) Z0FRAN IV PRN; +ONDANSETRON 4 MG/2 ML (SDV) Z0FRAN IVP ONE; +ONDANSETRON 4 MG/2 ML (SDV) Z0FRAN ONE; +PROMETHAZINE INJ 25 MG/ML (PHENERGAN) AMP IV ONE; +PROMETHAZINE INJ 25 MG/ML (PHENERGAN) AMP IV PRN; +PROMETHAZINE INJ 25 MG/ML (PHENERGAN) AMP ONE; +fentaNYL INJECTION 100 MCG/2 ML AMP IV ONE; +fentaNYL INJECTION 100 MCG/2 ML AMP IV PRN; +fentaNYL INJECTION 100 MCG/2 ML AMP IVP ONE; +fentaNYL INJECTION 100 MCG/2 ML AMP ONE; +methylPREDNISolone 125 MG (Solu-MEDROL) VIAL IVP ONE
[2018-07-15 14:08] VITALS: BP 155/104
== END ==
LOC: SDC 14:05 → EDSTATUS 07-16 09:59
PROVIDERS: ATTEND Nurse Practitioner Family
DX: K50.90 Crohn's disease, unspecified, without complications (principal); R11.0 Nausea
CPT/HCPCS: 96361; 96374; 96375; 96376

== ENCOUNTER 2018-08-10 13:59 | Outpatient (CLI) | payer BC ==
[~2018-08-10] VITALS: Ht 165.1 cm; Wt 63.5 kg
[~2018-08-10 13:59] MED LIST changes: -NS IV 1000 ML 1,000 ML IV ONE; -NS IV 1000 ML 1,000 ML ONE; -ONDANSETRON 4 MG/2 ML (SDV) Z0FRAN IV ONE; -ONDANSETRON 4 MG/2 ML (SDV) Z0FRAN IV PRN; -ONDANSETRON 4 MG/2 ML (SDV) Z0FRAN IVP ONE; -ONDANSETRON 4 MG/2 ML (SDV) Z0FRAN ONE; -PROMETHAZINE INJ 25 MG/ML (PHENERGAN) AMP IV ONE; -PROMETHAZINE INJ 25 MG/ML (PHENERGAN) AMP IV PRN; -PROMETHAZINE INJ 25 MG/ML (PHENERGAN) AMP ONE; -fentaNYL INJECTION 100 MCG/2 ML AMP IV ONE; -fentaNYL INJECTION 100 MCG/2 ML AMP IV PRN; -fentaNYL INJECTION 100 MCG/2 ML AMP IVP ONE; -fentaNYL INJECTION 100 MCG/2 ML AMP ONE; -methylPREDNISolone 125 MG (Solu-MEDROL) VIAL IVP ONE
[2018-08-10] MEDS ORDERED: NS IV 1000 ML 1,000 ML IV ONE (14:30)
[2018-08-10] MEDS ORDERED: fentaNYL INJECTION 100 MCG/2 ML AMP IV ONE (14:30)
[2018-08-10] MEDS ORDERED: PROMETHAZINE INJ 25 MG/ML (PHENERGAN) AMP IV ONE (14:30)
[2018-08-10] MEDS ORDERED: ONDANSETRON 4 MG/2 ML (SDV) Z0FRAN IV ONE (14:30)
[2018-08-10] MEDS ORDERED: fentaNYL INJECTION 100 MCG/2 ML AMP IV PRN (14:30)
[2018-08-10 15:45] VITALS: BP 139/96
== END 2018-08-10 15:45 | disposition home or self-care (01) ==
LOC: SDC 13:59
PROVIDERS: ATTEND Family Medicine
DX: K50.90 Crohn's disease, unspecified, without complications (principal)
CPT/HCPCS: 96360; 96374; 96375; 96376

== ENCOUNTER 2018-08-13 15:32 | Day surgery (SDC) | payer BC ==
[~2018-08-13] VITALS: Ht 165.1 cm; Wt 63.5 kg
[2018-08-13] MEDS: fentaNYL INJECTION 100 MCG/2 ML AMP IV PRN ×2 (15:30→16:10)
[2018-08-13] MEDS ORDERED: NS IV 1000 ML 1,000 ML ONE (15:40)
[2018-08-13] MEDS ORDERED: ONDANSETRON 4 MG/2 ML (SDV) Z0FRAN ONE (15:41)
[2018-08-13] MEDS ORDERED: methylPREDNISolone 125 MG (Solu-MEDROL) VIAL ONE (15:41)
[2018-08-13] MEDS ORDERED: PROMETHAZINE INJ 25 MG/ML (PHENERGAN) AMP ONE (15:41)
[2018-08-13] MEDS ORDERED: fentaNYL INJECTION 100 MCG/2 ML AMP ONE ×2 (15:41→16:40)
[2018-08-13] MEDS ORDERED: ONDANSETRON 4 MG/2 ML (SDV) Z0FRAN IV PRN (15:45)
[2018-08-13] MEDS ORDERED: PROMETHAZINE INJ 25 MG/ML (PHENERGAN) AMP IV PRN (15:45)
[2018-08-13] MEDS ORDERED: NS IV 1000 ML 1,000 ML IV ONE (15:45)
[2018-08-13] MEDS ORDERED: methylPREDNISolone 125 MG (Solu-MEDROL) VIAL IV ONE (15:45)
[2018-08-13 17:00] VITALS: BP 135/109
[2018-08-13] MEDS ORDERED: fentaNYL INJECTION 100 MCG/2 ML AMP IVP ONE (17:00)
== END 2018-08-13 17:00 | disposition home or self-care (01) ==
LOC: SDC 15:32
PROVIDERS: ATTEND Nurse Practitioner Family
DX: K50.90 Crohn's disease, unspecified, without complications (principal)
CPT/HCPCS: 96374; 96375; 96376

== ENCOUNTER → 2018-09-08 | Outpatient (CLI) | payer BC ==
[~2018-09-08] VITALS: Ht 165.1 cm; Wt 63.5 kg
[~2018-09-08] MED LIST changes: +NS IV 1000 ML 1,000 ML IV ONE; +NS IV 1000 ML 1,000 ML ONE; +ONDANSETRON 4 MG/2 ML (SDV) Z0FRAN IV PRN; +ONDANSETRON 4 MG/2 ML (SDV) Z0FRAN ONE; +PROMETHAZINE INJ 25 MG/ML (PHENERGAN) AMP IV PRN; +PROMETHAZINE INJ 25 MG/ML (PHENERGAN) AMP ONE; +fentaNYL INJECTION 100 MCG/2 ML AMP IV PRN; +fentaNYL INJECTION 100 MCG/2 ML AMP ONE
--- NOTE | 2018-09-08 14:45 | NUR ---
FENTANYL 25 MCG IV, ZOFRAN 4 MG IV, AND PHENERGAN 25 MG IV GIVEN FOR PAIN AND NAUSEA. NORMAL SALINE IV WIDE OPEN.
--- NOTE | 2018-09-08 15:05 | NUR ---
FENTANYL 25 MCG IV, ZOFRAN 4 MG IV, AND PHENERGAN 25 MG IV GIVEN FOR PAIN AND NAUSEA.
[2018-09-08 15:45] VITALS: BP 131/80
== END ==
LOC: SDC 14:19 → EDSTATUS 14:34 → SDC 14:41
PROVIDERS: ATTEND Nurse Practitioner Family
DX: K50.90 Crohn's disease, unspecified, without complications (principal)
CPT/HCPCS: 96360; 96374; 96375; 96376

== ENCOUNTER 2018-09-09 14:07 | Outpatient (CLI) | payer BC ==
[~2018-09-09] VITALS: Ht 165.1 cm; Wt 63.5 kg
[~2018-09-09 14:07] MED LIST changes: -NS IV 1000 ML 1,000 ML IV ONE; -NS IV 1000 ML 1,000 ML ONE; -ONDANSETRON 4 MG/2 ML (SDV) Z0FRAN IV PRN; -ONDANSETRON 4 MG/2 ML (SDV) Z0FRAN ONE; -PROMETHAZINE INJ 25 MG/ML (PHENERGAN) AMP IV PRN; -PROMETHAZINE INJ 25 MG/ML (PHENERGAN) AMP ONE; -fentaNYL INJECTION 100 MCG/2 ML AMP IV PRN; -fentaNYL INJECTION 100 MCG/2 ML AMP ONE
[2018-09-09] MEDS ORDERED: NS IV 1000 ML 1,000 ML IV ONE (14:30)
[2018-09-09] MEDS ORDERED: fentaNYL INJECTION 100 MCG/2 ML AMP IV ONE (14:30)
[2018-09-09] MEDS ORDERED: fentaNYL INJECTION 100 MCG/2 ML AMP IV PRN (14:30)
[2018-09-09] MEDS ORDERED: PROMETHAZINE INJ 25 MG/ML (PHENERGAN) AMP IV ONE (14:45)
[2018-09-09] MEDS ORDERED: PROMETHAZINE INJ 25 MG/ML (PHENERGAN) AMP IV PRN (14:45)
[2018-09-09] MEDS ORDERED: ONDANSETRON 4 MG/2 ML (SDV) Z0FRAN IV PRN (14:45)
[2018-09-09] MEDS ORDERED: ONDANSETRON 4 MG/2 ML (SDV) Z0FRAN IV ONE (14:45)
[2018-09-09] MEDS ORDERED: fentaNYL INJECTION 100 MCG/2 ML AMP IVP PRN (16:00)
[2018-09-09 16:47] VITALS: BP 124/65
== END 2018-09-09 16:50 | disposition home or self-care (01) ==
LOC: SDC 14:07
PROVIDERS: ATTEND Nurse Practitioner Family
DX: K50.90 Crohn's disease, unspecified, without complications (principal)
CPT/HCPCS: 96361; 96374; 96375; 96376

== ENCOUNTER → 2018-10-25 | Outpatient (CLI) | payer BC ==
[~2018-10-25] VITALS: Ht 165.1 cm; Wt 63.5 kg
[~2018-10-25] MED LIST changes: +NS IV 1000 ML 1,000 ML IV ONE; +NS IV 1000 ML 1,000 ML ONE; +ONDANSETRON 4 MG/2 ML (SDV) Z0FRAN IV ONE; +ONDANSETRON 4 MG/2 ML (SDV) Z0FRAN IV PRN; +ONDANSETRON 4 MG/2 ML (SDV) Z0FRAN ONE; +PROMETHAZINE INJ 25 MG/ML (PHENERGAN) AMP IV ONE; +PROMETHAZINE INJ 25 MG/ML (PHENERGAN) AMP IV PRN; +PROMETHAZINE INJ 25 MG/ML (PHENERGAN) AMP ONE; +fentaNYL INJECTION 100 MCG/2 ML AMP IV ONE; +fentaNYL INJECTION 100 MCG/2 ML AMP IV PRN; +fentaNYL INJECTION 100 MCG/2 ML AMP ONE
[2018-10-25 12:50] VITALS: BP 145/105
== END ==
LOC: SDC 11:28
PROVIDERS: ATTEND Family Medicine
DX: R11.0 Nausea (principal); K50.90 Crohn's disease, unspecified, without complications
CPT/HCPCS: 96360; 96374; 96375; 96376

== ENCOUNTER 2018-12-03 12:24 | Outpatient (RCR) | payer SELFPAY ==
[2018-12-01 15:37] VITALS: BP 140/96
--- NOTE | 2018-12-02 14:41 | NUR ---
1430 - NS INFUSION COMPLETE. STATES THAT SHE DOES NOT FEEL BETTER. CONTINUES TO RATE PAIN @ 8. DR SEARS'S OFFICE NOTIFIED. NEW ORDERS RECEIVED. Addendum: 12/02/18 at 1442 by MARCY TILLEY RN Amended: Links added.
[2018-12-02 15:51] VITALS: BP 136/100
--- NOTE | 2018-12-02 15:54 | NUR ---
1500 - PT STATES THAT SHE IS FEELING BETTER. 1540 - PT STATES FEELING BETTER, READY FOR D/C. HAS RIDE WAITING IN LOBBY. Addendum: 12/02/18 at 1555 by MARCY TILLEY RN Amended: Links added.
[~2018-12-03] VITALS: Ht 165.1 cm; Wt 63.5 kg
[~2018-12-03 12:24] MED LIST changes: -NS IV 1000 ML 1,000 ML IV ONE; +NS IV 1000 ML 1,000 ML IV SCH; -ONDANSETRON 4 MG/2 ML (SDV) Z0FRAN IV ONE; -PROMETHAZINE INJ 25 MG/ML (PHENERGAN) AMP IV ONE; -fentaNYL INJECTION 100 MCG/2 ML AMP IV ONE; +fentaNYL INJECTION 100 MCG/2 ML AMP IVP ONE; +metroNIDAZOLE 500 MG/100 ML IVPB (PRE-MIX) IV ONE; +metroNIDAZOLE 500MG/100ML IVPB 100 ML ONE
[2018-12-03 12:25] VITALS: BP 144/102
[2018-12-03] MEDS ORDERED: NS IV 1000 ML 1,000 ML ONE (12:31)
[2018-12-03] MEDS ORDERED: NS IV 1000 ML 1,000 ML IV NR (13:00)
[2018-12-03] MEDS ORDERED: PROMETHAZINE INJ 25 MG/ML (PHENERGAN) AMP IV ONE (13:00)
[2018-12-03] MEDS ORDERED: fentaNYL INJECTION 100 MCG/2 ML AMP IV ONE (13:00)
--- NOTE | 2018-12-03 13:55 | NUR ---
PATIENT COMPLAINS OF NAUSEA AND PAIN, STATES PREVIOUS MEDICATIONS DID NOT HELP. THIS RN CALLED MARCY VELAZQUEZ APRN AT APPROXIMATELY 1345 TO REPORT SYMPTOMS, RECEIVED NEW ORDER FOR ZOFRAN 4MG X1 DOSE. ZOFRAN ADMINISTERED, IV FLUSHED AND DISCONTINUED. PATIENT LEFT UNIT AMBULATORY, UNACCOMPANIED AT 1355.
[2018-12-03] MEDS ORDERED: ONDANSETRON 4 MG/2 ML (SDV) Z0FRAN IVP ONE (14:15)
== END 2018-12-07 08:28 | disposition home or self-care (01) ==
LOC: SDC 12:24
PROVIDERS: ATTEND Family Medicine
DX: K50.90 Crohn's disease, unspecified, without complications (principal); Z79.899 Other long term (current) drug therapy
CPT/HCPCS: 96360; 96361; 96365; 96366; 96374; 96375

== ENCOUNTER → 2019-01-03 | Outpatient (CLI) | payer SELFPAY ==
[~2019-01-03] VITALS: Ht 165.1 cm; Wt 63.5 kg
[~2019-01-03] MED LIST changes: +NS IV 1000 ML 1,000 ML IV ONE; -NS IV 1000 ML 1,000 ML IV SCH; -ONDANSETRON 4 MG/2 ML (SDV) Z0FRAN IV PRN; -ONDANSETRON 4 MG/2 ML (SDV) Z0FRAN ONE; +PROMETHAZINE INJ 25 MG/ML (PHENERGAN) AMP IV ONE; -PROMETHAZINE INJ 25 MG/ML (PHENERGAN) AMP IV PRN; +fentaNYL INJECTION 100 MCG/2 ML AMP IV ONE; -fentaNYL INJECTION 100 MCG/2 ML AMP IV PRN; -fentaNYL INJECTION 100 MCG/2 ML AMP IVP ONE; -metroNIDAZOLE 500 MG/100 ML IVPB (PRE-MIX) IV ONE; -metroNIDAZOLE 500MG/100ML IVPB 100 ML ONE
[2019-01-03 10:40] VITALS: BP 152/92
== END ==
LOC: SDC 10:36 → EDSTATUS 10:38
PROVIDERS: ATTEND Nurse Practitioner Family
DX: K50.90 Crohn's disease, unspecified, without complications (principal)
CPT/HCPCS: 96360; 96374; 96375

== ENCOUNTER 2020-12-04 09:32 | Outpatient (CLI) | payer SELFPAY ==
[~2020-12-04] VITALS: Ht 165.1 cm; Wt 54.1 kg
[~2020-12-04 09:32] MED LIST changes: +ALPR.25T PO; -METO-370 PO; -METO10TA3 PO; +METO50TA7 PO; +MTC10T PO; -NORG1TAB7 PO; +NORG1TAB87 PO; -NS IV 1000 ML 1,000 ML IV ONE; -NS IV 1000 ML 1,000 ML ONE; +OXYC-525 PO; -OXYC15TA79 PO; -PROMETHAZINE INJ 25 MG/ML (PHENERGAN) AMP IV ONE; -PROMETHAZINE INJ 25 MG/ML (PHENERGAN) AMP ONE; -fentaNYL INJECTION 100 MCG/2 ML AMP IV ONE; -fentaNYL INJECTION 100 MCG/2 ML AMP ONE
[2020-12-04] MEDS ORDERED: fentaNYL INJ 100 MCG/2 ML AMP IVP ONE (10:00)
[2020-12-04] MEDS ORDERED: PROMETHAZINE INJ 25 MG/ML (PHENERGAN) AMP IVP ONE (10:00)
[2020-12-04] MEDS ORDERED: NS IV 1000 ML 1,000 ML IV SCH (10:00)
[2020-12-04 10:22] VITALS: BP 124/85
== END 2020-12-04 11:20 | disposition home or self-care (01) ==
LOC: SDC 09:32
PROVIDERS: ATTEND Nurse Practitioner Family
DX: K50.90 Crohn's disease, unspecified, without complications (principal)
CPT/HCPCS: 96360; 96374; 96375

== ENCOUNTER 2020-12-06 09:10 | Outpatient (CLI) | payer SELFPAY ==
[~2020-12-06] VITALS: Ht 165.1 cm; Wt 54.1 kg
[2020-12-06] MEDS ORDERED: NS IV 1000 ML 1,000 ML ONE (09:16)
[2020-12-06] MEDS ORDERED: fentaNYL INJ 100 MCG/2 ML AMP ONE (09:21)
[2020-12-06] MEDS ORDERED: PROMETHAZINE INJ 25 MG/ML (PHENERGAN) AMP ONE (09:22)
[2020-12-06 10:30] VITALS: BP 134/95
[2020-12-06] MEDS ORDERED: fentaNYL INJ 100 MCG/2 ML AMP IVP ONE (10:45)
[2020-12-06] MEDS ORDERED: PROMETHAZINE INJ 25 MG/ML (PHENERGAN) AMP IVP ONE (10:45)
[2020-12-06] MEDS ORDERED: NS IV 1000 ML 1,000 ML IV SCH (10:45)
== END 2020-12-06 10:30 ==
LOC: SDC 09:10
PROVIDERS: ATTEND Nurse Practitioner Family
DX: K50.90 Crohn's disease, unspecified, without complications (principal); E86.0 Dehydration
CPT/HCPCS: 96360; 96374; 96375

== ENCOUNTER → 2020-12-11 | Outpatient (CLI) | payer SELFPAY ==
[~2020-12-11] MED LIST changes: +NS IV 1000 ML 1,000 ML IV SCH; +NS IV 1000 ML 1,000 ML ONE; +PROMETHAZINE INJ 25 MG/ML (PHENERGAN) AMP IVP PRN; +PROMETHAZINE INJ 25 MG/ML (PHENERGAN) AMP ONE; +fentaNYL INJ 100 MCG/2 ML AMP IVP PRN; +fentaNYL INJ 100 MCG/2 ML AMP ONE
[2020-12-11 12:40] VITALS: BP 137/107
== END ==
LOC: SDC 11:51
PROVIDERS: ATTEND Nurse Practitioner Family
DX: E86.0 Dehydration (principal)
CPT/HCPCS: 96360; 96374; 96375

== ENCOUNTER → 2020-12-11 | Outpatient (CLI) | payer SELFPAY ==
[~2020-12-11] MED LIST changes: -NS IV 1000 ML 1,000 ML IV SCH; -NS IV 1000 ML 1,000 ML ONE; -PROMETHAZINE INJ 25 MG/ML (PHENERGAN) AMP IVP PRN; -PROMETHAZINE INJ 25 MG/ML (PHENERGAN) AMP ONE; -fentaNYL INJ 100 MCG/2 ML AMP IVP PRN; -fentaNYL INJ 100 MCG/2 ML AMP ONE
--- NOTE | 2020-12-11 09:21 | Diagnostic Imaging Report ---
INDICATION: Weight loss. Time of exam: 9:10 AM Comparison is made with prior chest from 12/15/2015. The heart size is normal. The pulmonary vascularity is unremarkable. The lungs are clear. No infiltrate, effusion or pneumothorax is detected. IMPRESSION: No acute cardiopulmonary process is detected. Dictated by: Dictated on workstation # [id number]
== END ==
LOC: RAD 08:41
PROVIDERS: ATTEND Nurse Practitioner Family
DX: R63.4 Abnormal weight loss (principal)
CPT/HCPCS: 71046

== ENCOUNTER 2020-12-30 16:24 | Emergency (ER) | payer OTHER ==
[~2020-12-30] VITALS: Ht 165 cm; Wt 56.8 kg
--- NOTE | 2020-12-30 16:56 | ED Abdominal Pain ---
General Chief Complaint: Abdominal/GI Problems Stated Complaint: CROHN'S FLARE UP/STOMACH PAIN/DIARRHEA Source of Information: Patient Exam Limitations: No Limitations History of Present Illness Date Seen by Provider: Dec 30, 2020 Time Seen by Provider: 16:54 Initial Comments To ER with a 1 week history of "Crohn's flare" manifested as bloody diarrhea and abdominal cramping. States she does not have health insurance and showed her management of her Crohn's is limited to Lialda samples given by primary care. Timing/Duration: 1 Week Severity/Quality: Cramping Location: Generalized Abdomen Radiation: No Radiation Activities at Onset: None Associated Symptoms: Nausea/Vomiting Allergies and Home Medications Allergies Coded Allergies: morphine (Unverified Adverse Reaction, Unknown, ITCHING, TAKES LORTAB AT HOME, 04/28/14) CAN HAVE JUST REQUIRES BENADRYL AT SAME TIME Home Medications ALPRAZolam 0.25 Mg Tablet, 0.125-0.25 MG PO TID PRN for ANXIETY, (Reported) TAKES 1/2-1 OF A (0.25 MG) TABLET Budesonide 9 Mg Tabdr...er, 9 MG PO DAILY, (Reported) Cholestyramine/Aspartame 210 Gm Powder, 210 GM PO DAILY Prescribed by: KYLER CHANEY on 10/22/171449 Famotidine 20 Mg Tablet, 20 MG PO BID Prescribed by: KYLER CHANEY on 10/22/171449 Fentanyl 1 Each Patch.td72, 25 MCG TD Q72H, (Reported) Fentanyl 12 Mcg Patch, 12 MCG TD Q72H Prescribed by: KYLER CHANEY on 10/22/171449 Mesalamine 1.2 Gm Tablet.dr, 2 TAB PO BID, (Reported) Methylprednisolone 4 Mg Tab.ds.pk, 4 MG PO UD PER DOSE PACK INSTRUCTIONS Prescribed by: MICHELLE HUFFMAN on 12/30/20 173 Metoclopramide HCl 10 Mg Tablet, 10 MG PO ACHS, (Reported) Metronidazole 500 Mg Tablet, 500 MG PO TID Prescribed by: KYLER CHANEY on 10/22/171449 Oxycodone HCl 15 Mg Tablet, 15 MG PO EVERY 4-6 HOURS PRN for PAIN-SEVERE, (Reported) Patient Home Medication List Home Medication List Reviewed: Yes Review of Systems Review of Systems Constitutional: see HPI EENTM: No Symptoms Reported Respiratory: No Symptoms Reported Cardiovascular: No Symptoms Reported Gastrointestinal: See HPI, Abdominal Pain Genitourinary: No Symptoms Reported Musculoskeletal: no symptoms reported Skin: no symptoms reported Psychiatric/Neurological: No Symptoms Reported Endocrine: No Symptoms Reported Hematologic/Lymphatic: No Symptoms Reported Past Oodtzgx-Jqtrys-Tjixxm Hx Patient Social History 2nd Hand Smoke Exposure: No Recent Hopitalizations: No Immunizations Up To Date Tetanus Booster (TDap): Unknown PED Vaccines UTD: No Date of Pneumonia Vaccine: Jul 20, 2012 Date of Influenza Vaccine: Apr 25, 2014 Seasonal Allergies Seasonal Allergies: No Past Medical History Surgeries: Yes (DXLS WITH OOPHORECTOMY, KNEE SCOPE, FOOT) Abdominal, Appendectomy, Section, Hysterectomy, Oophorectomy, Orthopedic, Tonsillectomy Respiratory: No Cardiac: Yes Hypertension Neurological: Yes Headaches /Migraines Reproductive Disorders: No Female Reproductive Disorders: Denies [employer] History: Hysterectomy Sexually Transmitted Disease: No HIV/AIDS: No Genitourinary: No Gastrointestinal: Yes (gastroparesis) Colitis, Crohns Disease, Irritable Bowel Musculoskeletal: No Endocrine: No HEENT: No Loss of Vision: Denies Hearing Impairment: Denies Cancer: No Psychosocial: Yes Anxiety, Depression Integumentary: No Blood Disorders: No Adverse Reaction/Blood Tranf: No Family Medical History Congestive heart failure GRANDPARENTS Family history: Arthritis 03 MOTHER GRANDPARENTS Family history: Diabetes mellitus GRANDPARENTS Family history: Hypertension 09 BROTHER Myocardial infarction GRANDPARENTS No Family History of: Abdominal aortic aneurysm Cancer Family history: Gastrointestinal disease Family history: Thyroid disorder Hereditary disease History of - respiratory disease Heart Disease, CAD Over 55 Years Old, Diabetes, Hypertension Physical Exam Vital Signs Vital Signs - First Documented 12/30/20 16:53 Temp 37.1 Pulse 93 Resp 18 B/P (MAP) 147/98 (114) Pulse Ox 97 Capillary Refill : Height/Weight/BMI Height: 5'5.00" Weight: 140lbs. 0.0oz. [id number]; 23.3 BMI Method:Stated General Appearance: WD/WN, no apparent distress HEENT: PERRL/EOMI, normal ENT inspection Cardiovascular: regular rate, rhythm, no murmur Gastrointestinal: normal bowel sounds, soft, tenderness Extremities: normal range of motion, non-tender Neurologic/Psychiatric: alert, normal mood/affect, oriented x 3 Skin: normal color, warm/dry Progress/Results/Core Measures Results/Orders Lab Results Laboratory Tests Test 12/30/20 16:55 12/30/20 17:57 Range/Units White Blood Count 8.5 4.3-11.0 10^3/uL Red Blood Count 5.03 3.80-5.11 10^6/uL Hemoglobin 14.5 11.5-16.0 g/dL Hematocrit 42 35-52 % Mean Corpuscular Volume 84 80-99 fL Mean Corpuscular Hemoglobin 29 25-34 pg Mean Corpuscular Hemoglobin Concent 34 32-36 g/dL Red Cell Distribution Width 12.9 10.0-14.5 % Platelet Count 402 H 130-400 10^3/uL Mean Platelet Volume 10.6 9.0-12.2 fL Immature Granulocyte % (Auto) 0 % Neutrophils (%) (Auto) 59 42-75 % Lymphocytes (%) (Auto) 30 12-44 % Monocytes (%) (Auto) 9 0-12 % Eosinophils (%) (Auto) 1 0-10 % Basophils (%) (Auto) 1 0-10 % Neutrophils # (Auto) 5.0 1.8-7.8 10^3/uL Lymphocytes # (Auto) 2.6 1.0-4.0 10^3/uL Monocytes # (Auto) 0.8 0.0-1.0 10^3/uL Eosinophils # (Auto) 0.1 0.0-0.3 10^3/uL Basophils # (Auto) 0.0 0.0-0.1 10^3/uL Immature Granulocyte # (Auto) 0.0 0.0-0.1 10^3/uL Erythrocyte Sedimentation Rate 17 0-20 MM/HR Sodium Level 140 135-145 MMOL/L Potassium Level 3.2 L 3.6-5.0 MMOL/L Chloride Level 106 98-107 MMOL/L Carbon Dioxide Level 20 L 21-32 MMOL/L Anion Gap 14 5-14 MMOL/L Blood Urea Nitrogen 10 7-18 MG/DL Creatinine 0.88 0.60-1.30 MG/DL Estimat Glomerular Filtration Rate > 60 BUN/Creatinine Ratio 11 Glucose Level 122 H 70-105 MG/DL Calcium Level 9.5 8.5-10.1 MG/DL Corrected Calcium 9.1 8.5-10.1 MG/DL Total Bilirubin 0.2 0.1-1.0 MG/DL Aspartate Amino Transf (AST/SGOT) 21 5-34 U/L Alanine Aminotransferase (ALT/SGPT) 23 0-55 U/L Alkaline Phosphatase 142 H 40-136 U/L C-Reactive Protein High Sensitivity 0.09 0.00-0.50 MG/DL Total Protein 8.0 6.4-8.2 GM/DL Albumin 4.5 3.2-4.5 GM/DL Serum Test, Qualitative NEGATIVE NEGATIVE Urine Color YELLOW Urine Clarity CLEAR Urine pH 6.5 5-9 Urine Specific Stuart <=1.005 1.016-1.022 Urine Protein NEGATIVE NEGATIVE Urine Glucose (UA) NEGATIVE NEGATIVE Urine Ketones NEGATIVE NEGATIVE Urine Nitrite NEGATIVE NEGATIVE Urine Bilirubin NEGATIVE NEGATIVE Urine Urobilinogen 0.2 < = 1.0 MG/DL Urine Leukocyte Esterase TRACE H NEGATIVE Urine RBC (Auto) TRACE-I NEGATIVE Urine RBC 0-2 /HPF Urine WBC 2-5 /HPF Urine Squamous Epithelial Cells 2-5 /HPF Urine Crystals NONE /LPF Urine Bacteria TRACE /HPF Urine Casts NONE /LPF Urine Mucus NEGATIVE /LPF Urine Culture Indicated NO My Orders Orders - MICHELLE HUFFMAN APRN Cbc With Automated Diff (12/30/20 16:54) Comprehensive Metabolic Panel (12/30/20 16:54) Erythrocyte Sedimentation Rate (12/30/20 16:54) Hs C Reactive Protein (12/30/20 16:54) Hcg,Qualitative Serum (12/30/20 16:54) Ed Iv/Invasive Line Start (12/30/20 16:54) Lactated Ringers (Lr 1000 Ml Iv Solution (12/30/20 17:00) Promethazine Injection (Phenergan Injec (12/30/20 17:00) Ua Culture If Indicated (12/30/20 17:13) Ketorolac Injection (Toradol Injection) (12/30/20 17:30) Methylprednisolone Sod Succ (Solu-Medrol (12/30/20 17:30) Medications Given in ED Current Medications Medications Dose Ordered Sig/Annika Route Start Time Stop Time Status Last Admin Dose Admin Ketorolac Tromethamine 15 mg ONCE ONCE IVP 12/30/20 17:30 12/30/20 17:31 DC 12/30/20 17:30 15 MG Methylprednisolone Sodium Succinate 80 mg ONCE ONCE IV 12/30/20 17:30 12/30/20 17:31 DC 12/30/20 17:29 80 MG Promethazine HCl 25 mg ONCE ONCE IVP 12/30/20 17:00 12/30/20 17:01 DC 12/30/20 17:04 25 MG Vital Signs/I&O 12/30/20 16:53 Temp 37.1 Pulse 93 Resp 18 B/P (MAP) 147/98 (114) Pulse Ox 97 Departure Communication (Admissions) 1730-She has normal inflammatory markers, normal CBC.She has Fentanyl 25mcg/hr patch and oxycodone 10/325 at home. Despite her request, I do not feel that supplementing her with additional opiates here is appropriate. Impression Primary Impression: Abdominal pain Disposition: HOME, SELF-CARE Condition: Stable Departure-Patient Inst. Decision time for Depature: 17:30 Referrals: KYLER CHANEY MD (PCP/Family) Primary Care Physician Patient Instructions: No Instuctions Given Add. Discharge Instructions: 1. Steroids as directed. Follow-up with Dr. Chaney. Return to ER for any worsening. All discharge instructions reviewed with patient and/or family. Voiced understanding. Scripts Methylprednisolone (Methylprednisolone Dose Pack) 4 Mg Tab.ds.pk 4 MG PO UD for 6 Days, #21 PKG PER DOSE PACK INSTRUCTIONS. Prov: MICHELLE HUFFMAN APRN 12/30/20 Promethazine HCl (Promethazine Tablet) 25 Mg Tablet 25 MG PO TID PRN for NAUSEA/VOMITING, #10 TAB Prov: MICHELLE HUFFMAN APRN 12/30/20 Copy Copies To 1: KYLER CHANEY MD, PETER J BUCKLE SEWER Dec 30, 2020 16:56
[2020-12-30] MEDS ORDERED: LACTATED RINGERS 1,000 ML IV SCH (17:00)
[2020-12-30] MEDS ORDERED: PROMETHAZINE INJ 25 MG/ML (PHENERGAN) AMP IVP ONE (17:00)
[2020-12-30 17:06] LABS: BASOPHILS % (AUTO) 1 % (0-10); EOSINOPHILS # (AUTO) 0.1 10^3/uL (0.0-0.3); EOSINOPHILS % (AUTO) 1 % (0-10); HEMATOCRIT 42 % (35-52); HEMOGLOBIN 14.5 g/dL (11.5-16.0); LYMPHOCYTES # (AUTO) 2.6 10^3/uL (1.0-4.0); LYMPHOCYTES % (AUTO) 30 % (12-44); MEAN CORPUSCULAR HEMOGLOBIN 29 pg (25-34); MEAN CORPUSCULAR HGB CONC 34 g/dL (32-36); MEAN CORPUSCULAR VOLUME 84 fL (80-99); MEAN PLATELET VOLUME 10.6 fL (9.0-12.2); MONOCYTES # (AUTO) 0.8 10^3/uL (0.0-1.0); MONOCYTES % (AUTO) 9 % (0-12); NEUTROPHILS % (AUTO) 59 % (42-75); PLATELET COUNT 402 10^3/uL (130-400); WHITE BLOOD COUNT 8.5 10^3/uL (4.3-11.0)
[2020-12-30 17:18] LABS: ALBUMIN 4.5 GM/DL (3.2-4.5); CHLORIDE 106 MMOL/L (98-107); POTASSIUM 3.2 MMOL/L (3.6-5.0)
[2020-12-30 17:19] LABS: SODIUM 140 MMOL/L (135-145)
[2020-12-30 17:20] LABS: CALCIUM 9.5 MG/DL (8.5-10.1)
[2020-12-30 17:21] LABS: GLUCOSE 122 MG/DL (70-105)
[2020-12-30 17:22] LABS: CARBON DIOXIDE 20 MMOL/L (21-32)
[2020-12-30 17:23] LABS: BILIRUBIN,TOTAL 0.2 MG/DL (0.1-1.0); ERYTHROCYTE SEDIMENTATION RATE 17 MM/HR (0-20)
[2020-12-30 17:24] LABS: ALKALINE PHOSPHATASE 142 U/L (40-136)
[2020-12-30 17:25] LABS: CREATININE SERUM 0.88 MG/DL (0.60-1.30); GFR ESTIMATED > 60
[2020-12-30 17:26] LABS: BUN/CREATININE RATIO 11
[2020-12-30 17:28] LABS: ALANINE AMINOTRANSFERASE 23 U/L (0-55)
[2020-12-30] MEDS ORDERED: KETOROLAC 30 MG/ML VIAL IVP ONE (17:30)
[2020-12-30] MEDS ORDERED: methylPREDNISolone 40 MG/ML (Solu-MEDROL) VIAL IV ONE (17:30)
[2020-12-30] MEDS ORDERED: METH4TAB10 PO ×2 (17:32→18:21)
[2020-12-30 18:07] LABS: BILIRUBIN,URINE NEGATIVE (NEGATIVE); CLARITY,URINE CLEAR; COLOR,URINE YELLOW; GLUCOSE, URINE (UA) NEGATIVE (NEGATIVE); KETONES,URINE NEGATIVE (NEGATIVE); LEUKOCYTE ESTERASE ,URINE TRACE (NEGATIVE); NITRITE,URINE NEGATIVE (NEGATIVE); PH,URINE 6.5 (5-9); PROTEIN,URINE NEGATIVE (NEGATIVE)
[2020-12-30 18:14] LABS: BACTERIA,URINE TRACE /HPF; RBC,URINE 0-2 /HPF
[2020-12-30] MEDS ORDERED: PROM25TA14 PO (18:21)
[2020-12-30 18:23] VITALS: BP 147/98
== END 2020-12-30 18:23 | disposition home or self-care (01) ==
LOC: EDUNIT# 16:24 → ER 16:25
DX: R10.84 Generalized abdominal pain (principal); F41.9 Anxiety disorder, unspecified; I10 Essential (primary) hypertension; K50.90 Crohn's disease, unspecified, without complications; Z79.899 Other long term (current) drug therapy; Z79.52 Long term (current) use of systemic steroids
CPT/HCPCS: 36415; 80053; 81000; 84703; 85025; 85652; 86141

== ENCOUNTER 2021-01-01 08:45 | Outpatient (CLI) | payer OTHER ==
[~2021-01-01 08:45] MED LIST changes: +METH4TAB10 PO; +PROM25TA14 PO
== END 2021-01-01 09:29 | disposition home or self-care (01) ==
LOC: SDC 08:45
PROVIDERS: ATTEND Nurse Practitioner Family
DX: E86.0 Dehydration (principal)

== ENCOUNTER 2021-01-01 09:29 | Emergency (ER) | payer SELFPAY ==
[~2021-01-01] VITALS: Ht 165 cm; Wt 56.0 kg
[2021-01-01] MEDS ORDERED: HYDROmorphone 2 MG/ML VIAL (DILAUDID) IV ONE ×2 (10:00→11:15)
[2021-01-01] MEDS ORDERED: PROMETHAZINE INJ 25 MG/ML (PHENERGAN) AMP IVP ONE (10:00)
--- NOTE | 2021-01-01 10:01 | ED General ---
General Chief Complaint: Dizziness/Syncope Stated Complaint: ABD PAIN, KEEPS PASSING OUT Nursing Triage Note: ARRIVED VIA WC TO ROOM 07 FROM DAY SURGERY. WAS SENT THERE BY DR CHANEY FOR IV FLUIDS BUT PT PASSED OUT WHILE WALKING IN THE DOOR AND THEY BROUGHT HER HERE. DENIES HITTING HER HEAD WHEN SHE PASSED OUT. Nursing Sepsis Screen: No Definite Risk Source of Information: Patient Exam Limitations: No Limitations History of Present Illness Date Seen by Provider: Jan 01, 2021 Time Seen by Provider: 08:48 Initial Comments Patient is a 40-year-old female with a history of Crohn's disease who presents to the emergency department from day surgery where she was ordered outpatient fluids with a chief complaint of near syncopal episode. Patient states that she has been having a "Crohn's flare" for about the last week with significant lower abdominal cramping and bloody diarrhea. Patient was seen here in the emergency department 48 hours ago and started on steroids but has not been able to fill that prescription just yet. She has been attempting to hydrate at home but unsuccessfully. She is had persistent nausea and vomiting and decreased oral intake. Patient normally wears a fentanyl patch but states that she took it off yesterday secondary to it expiring. She has not replaced a new one. Patient states that Phenergan normally works for her and she was scheduled to have IV fluids per her primary care physician, Dr. Chaney today but as she was walking into day surgery became very lightheaded and woozy and her daughter assisted her to the ground. Patient states that she did not have a complete syncopal episode. No recent fevers or chills. No burning with urination. No other complaints of illness or injury. All other review of systems reviewed and negative except as stated above. Timing/Duration: 1 Week Severity: Moderate Associated Systoms: Nausea/Vomiting, Other (Diarrhea) Allergies and Home Medications Allergies Coded Allergies: morphine (Unverified Adverse Reaction, Unknown, ITCHING, TAKES LORTAB AT HOME, 04/28/14) CAN HAVE JUST REQUIRES BENADRYL AT SAME TIME Home Medications ALPRAZolam 0.25 Mg Tablet, 0.125-0.25 MG PO TID PRN for ANXIETY, (Reported) TAKES 1/2-1 OF A (0.25 MG) TABLET Budesonide 9 Mg Tabdr...er, 9 MG PO DAILY, (Reported) Cholestyramine/Aspartame 210 Gm Powder, 210 GM PO DAILY Prescribed by: KYLER CHANEY on 10/22/171449 Famotidine 20 Mg Tablet, 20 MG PO BID Prescribed by: KYLER CHANEY on 10/22/171449 Fentanyl 1 Each Patch.td72, 25 MCG TD Q72H, (Reported) Fentanyl 12 Mcg Patch, 12 MCG TD Q72H Prescribed by: KYLER CHANEY on 10/22/171449 Mesalamine 1.2 Gm Tablet.dr, 2 TAB PO BID, (Reported) Methylprednisolone 4 Mg Tab.ds.pk, 4 MG PO UD PER DOSE PACK INSTRUCTIONS. Prescribed by: MICHELLE HUFFMAN on 12/30/201820 Metoclopramide HCl 10 Mg Tablet, 10 MG PO ACHS, (Reported) Metronidazole 500 Mg Tablet, 500 MG PO TID Prescribed by: KYLER CHANEY on 10/22/171449 Oxycodone HCl 15 Mg Tablet, 15 MG PO EVERY 4-6 HOURS PRN for PAIN-SEVERE, (Reported) Promethazine HCl 25 Mg Tablet, 25 MG PO TID PRN for NAUSEA/VOMITING Prescribed by: MICHELLE HUFFMAN on 12/30/201820 Patient Home Medication List Home Medication List Reviewed: Yes Review of Systems Review of Systems Constitutional: see HPI EENTM: no symptoms reported Respiratory: no symptoms reported Cardiovascular: no symptoms reported Gastrointestinal: abdominal pain, diarrhea, loss of appetite, nausea, vomiting Genitourinary: no symptoms reported Musculoskeletal: no symptoms reported Skin: no symptoms reported Psychiatric/Neurological: Anxiety All Other Systems Reviewed Negative Unless Noted: Yes Past Gntxbqf-Etskoj-Nuiokn Hx Patient Social History Alcohol Use: Denies Use Smoking Status: Current Everyday Smoker 2nd Hand Smoke Exposure: No Recent Infectious Disease Expo: No Recent Hopitalizations: No Immunizations Up To Date Tetanus Booster (TDap): Unknown PED Vaccines UTD: No Date of Pneumonia Vaccine: Jul 20, 2012 Date of Influenza Vaccine: Apr 25, 2014 Seasonal Allergies Seasonal Allergies: No Past Medical History Surgeries: Yes (DXLS WITH OOPHORECTOMY, KNEE SCOPE, FOOT) Abdominal, Appendectomy, Section, Hysterectomy, Oophorectomy, Orthopedic, Tonsillectomy Respiratory: No Cardiac: Yes Hypertension Neurological: Yes Headaches /Migraines Reproductive Disorders: No Female Reproductive Disorders: Denies [employer]MI[employer] History: Hysterectomy Sexually Transmitted Disease: No HIV/AIDS: No Genitourinary: No Gastrointestinal: Yes (gastroparesis) Colitis, Crohns Disease, Irritable Bowel Musculoskeletal: No Endocrine: No HEENT: No Loss of Vision: Denies Hearing Impairment: Denies Cancer: No Psychosocial: Yes Anxiety, Depression Integumentary: No Blood Disorders: No Adverse Reaction/Blood Tranf: No Family Medical History Congestive heart failure GRANDPARENTS Family history: Arthritis 03 MOTHER GRANDPARENTS Family history: Diabetes mellitus GRANDPARENTS Family history: Hypertension 09 BROTHER Myocardial infarction GRANDPARENTS No Family History of: Abdominal aortic aneurysm Cancer Family history: Gastrointestinal disease Family history: Thyroid disorder Hereditary disease History of - respiratory disease Heart Disease, CAD Over 55 Years Old, Diabetes, Hypertension Physical Exam Vital Signs Vital Signs - First Documented 01/01/21 09:30 Temp 36.2 Pulse 90 Resp 16 B/P (MAP) 121/91 (101) Pulse Ox 97 O2 Delivery Room Air Capillary Refill : Less Than 3 Seconds Height, Weight, BMI Height: 5'5.00" Weight: 140lbs. 0.0oz. [id number]; 20.00 BMI Method:Stated General Appearance: No Apparent Distress, WD/WN, Anxious Eyes: Bilateral Eye Normal Inspection, Bilateral Eye PERRL, Bilateral Eye EOMI Neck: Normal Inspection Respiratory: Lungs Clear, Normal Breath Sounds, No Accessory Muscle Use, No Respiratory Distress Cardiovascular: Regular Rate, Rhythm, Normal Peripheral Pulses Gastrointestinal: Soft, Abnormal Bowel Sounds (Hyperactive bowel sounds), Tenderness (Mild diffuse lower abdominal tenderness without distention) Extremity: Normal Capillary Refill, Normal Inspection, Normal Range of Motion, Non Tender, No Calf Tenderness Neurologic/Psychiatric: Alert, Oriented x3, No Motor/Sensory Deficits Skin: Normal Color, Warm/Dry Progress/Results/Core Measures Suspected Sepsis Recent Fever Within 48 Hours: No Infection Criteria Present: None New/Unexplained Altered Menta: No Sepsis Screen: No Definite Risk SIRS Temperature: Pulse: 90 Respiratory Rate: 16 Blood Pressure 121 /91 Mean: 101 Laboratory Tests 01/01/21 09:42: Creatinine 0.69 Results/Orders Lab Results Laboratory Tests Test 01/01/21 09:42 Range/Units Sodium Level 143 135-145 MMOL/L Potassium Level 3.2 L 3.6-5.0 MMOL/L Chloride Level 106 98-107 MMOL/L Carbon Dioxide Level 23 21-32 MMOL/L Anion Gap 14 5-14 MMOL/L Blood Urea Nitrogen 8 7-18 MG/DL Creatinine 0.69 0.60-1.30 MG/DL Estimat Glomerular Filtration Rate > 60 BUN/Creatinine Ratio 12 Glucose Level 94 70-105 MG/DL Calcium Level 9.3 8.5-10.1 MG/DL My Orders Orders - CATHY MENA MD Ed Iv/Invasive Line Start (01/01/21 09:57) Basic Metabolic Panel (01/01/21 09:57) Promethazine Injection (Phenergan Injec (01/01/21 10:00) Ns Iv 1000 Ml (Sodium Chloride 0.9%) (01/01/21 10:00) Hydromorphone Injection (Dilaudid Inject (01/01/21 10:00) Hydromorphone Injection (Dilaudid Inject (01/01/21 11:15) Medications Given in ED Current Medications Medications Dose Ordered Sig/Annika Route Start Time Stop Time Status Last Admin Dose Admin Hydromorphone HCl 0.5 mg ONCE ONCE IV 01/01/21 10:00 01/01/21 10:01 DC 01/01/21 10:07 0.5 MG Hydromorphone HCl 1 mg ONCE ONCE IV 01/01/21 11:15 01/01/21 11:17 DC 01/01/21 11:11 1 MG Promethazine HCl 25 mg ONCE ONCE IVP 01/01/21 10:00 01/01/21 10:01 DC 01/01/21 10:08 25 MG Vital Signs/I&O 01/01/21 09:30 Temp 36.2 Pulse 90 Resp 16 B/P (MAP) 121/91 (101) Pulse Ox 97 O2 Delivery Room Air Capillary Refill : Less Than 3 Seconds Blood Pressure Mean: 101 Departure Impression Primary Impression: Abdominal pain Additional Impressions: Dehydration Crohn's disease Disposition: HOME, SELF-CARE Condition: Stable Departure-Patient Inst. Decision time for Depature: 11:52 Referrals: KYLER CHANEY MD (PCP/Family) Primary Care Physician Patient Instructions: Dehydration, Adult (DC) Add. Discharge Instructions: Drink plenty of fluids to stay well-hydrated. Continue your nausea medications at home as prescribed. 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 Come back to the emergency department for reevaluation if you have any worsening symptoms, fever, persistent vomiting or other emergent concerns. Copy Copies To 1: KYLER CHANEY MD, KATHRYN M MD Jan 01, 2021 10:01
[2021-01-01] MEDS: NS IV 1000 ML 1,000 ML IV SCH ×2 (10:07→11:12)
[2021-01-01 10:12] LABS: CHLORIDE 106 MMOL/L (98-107); POTASSIUM 3.2 MMOL/L (3.6-5.0); SODIUM 143 MMOL/L (135-145)
[2021-01-01 10:13] LABS: CALCIUM 9.3 MG/DL (8.5-10.1)
[2021-01-01 10:14] LABS: GLUCOSE 94 MG/DL (70-105)
[2021-01-01 10:15] LABS: CARBON DIOXIDE 23 MMOL/L (21-32)
[2021-01-01 10:18] LABS: CREATININE SERUM 0.69 MG/DL (0.60-1.30); GFR ESTIMATED > 60
[2021-01-01 10:19] LABS: BUN/CREATININE RATIO 12
[2021-01-01 11:59] VITALS: BP 127/83
== END 2021-01-01 11:59 | disposition home or self-care (01) ==
LOC: EDUNIT# 09:29 → ER 09:32
DX: E86.0 Dehydration (principal); K50.90 Crohn's disease, unspecified, without complications; I10 Essential (primary) hypertension; F41.9 Anxiety disorder, unspecified; F17.200 Nicotine dependence, unspecified, uncomplicated; Z79.52 Long term (current) use of systemic steroids; Z79.899 Other long term (current) drug therapy
CPT/HCPCS: 36415; 80048

== ENCOUNTER 2021-02-28 13:22 | Outpatient (CLI) | payer MEDICAID ==
[~2021-02-28] VITALS: Ht 165.1 cm; Wt 56.0 kg
[~2021-02-28 13:22] MED LIST changes: -SULF1TAB35 PO; +SULF1TAB38 PO
[2021-02-28 14:00] VITALS: BP 125/83
[2021-02-28] MEDS ORDERED: fentaNYL INJ 100 MCG/2 ML AMP IVP PRN (14:00)
[2021-02-28] MEDS ORDERED: NS IV 1000 ML 1,000 ML IV SCH (14:00)
[2021-02-28] MEDS ORDERED: PROMETHAZINE INJ 25 MG/ML (PHENERGAN) AMP IVP PRN (14:00)
== END 2021-02-28 15:00 ==
LOC: SDC 13:22
PROVIDERS: ATTEND Nurse Practitioner Family
DX: K50.90 Crohn's disease, unspecified, without complications (principal)
CPT/HCPCS: 96360; 96374; 96375

== ENCOUNTER → 2021-08-30 | Day surgery (SDC) | payer MEDICAID ==
[~2021-08-30] VITALS: Wt 56.0 kg
[~2021-08-30] MED LIST changes: +NS IV 1000 ML 1,000 ML IV ONE; +NS IV 1000 ML 1,000 ML ONE; +PROMETHAZINE INJ 25 MG/ML (PHENERGAN) AMP IV PRN; +fentaNYL INJ 100 MCG/2 ML AMP IV PRN
[2021-08-30 13:10] VITALS: BP 149/102
== END | disposition home or self-care (01) ==
LOC: SDC 12:35
PROVIDERS: ATTEND Nurse Practitioner Family
DX: K50.10 Crohn's disease of large intestine without complications (principal)
CPT/HCPCS: 96360; 96374; 96375

== ENCOUNTER → 2021-09-02 | Outpatient (CLI) | payer MEDICAID ==
[~2021-09-02] MED LIST changes: +PROMETHAZINE INJ 25 MG/ML (PHENERGAN) AMP ONE; +fentaNYL INJ 100 MCG/2 ML AMP ONE
[2021-09-02 14:00] VITALS: BP 137/100
== END ==
LOC: SDC 14:06
PROVIDERS: ATTEND Nurse Practitioner Family
DX: K50.10 Crohn's disease of large intestine without complications (principal)
CPT/HCPCS: 96360

== ENCOUNTER → 2022-01-21 | Outpatient (CLI) | payer MEDICARE, MEDICAID ==
[~2022-01-21] MED LIST changes: -NS IV 1000 ML 1,000 ML IV ONE; +NS IV 1000 ML 1,000 ML IV SCH; -PROMETHAZINE INJ 25 MG/ML (PHENERGAN) AMP IV PRN; +PROMETHAZINE INJ 25 MG/ML (PHENERGAN) AMP IVP NR; -fentaNYL INJ 100 MCG/2 ML AMP IV PRN; +fentaNYL INJ 100 MCG/2 ML AMP IVP NR
[2022-01-21 09:40] VITALS: BP 151/100
== END ==
LOC: SDC 09:22
PROVIDERS: ATTEND Nurse Practitioner Family
DX: K50.10 Crohn's disease of large intestine without complications (principal)
CPT/HCPCS: 96360; 96374; 96375

== ENCOUNTER → 2022-09-18 | Outpatient (CLI) | payer MEDICARE, MEDICAID ==
[~2022-09-18] VITALS: Ht 165.1 cm; Wt 56.0 kg
[~2022-09-18] MED LIST changes: +NS IV 1000 ML 1,000 ML IV NR; -NS IV 1000 ML 1,000 ML IV SCH; +PROMETHAZINE INJ 25 MG/ML (PHENERGAN) AMP IV PRN; -PROMETHAZINE INJ 25 MG/ML (PHENERGAN) AMP IVP NR; +fentaNYL INJ 100 MCG/2 ML AMP IV PRN; -fentaNYL INJ 100 MCG/2 ML AMP IVP NR
[2022-09-18 13:56] VITALS: BP 135/92
== END ==
LOC: SDC 12:50
PROVIDERS: ATTEND Nurse Practitioner Family
DX: K50.10 Crohn's disease of large intestine without complications (principal)
CPT/HCPCS: 96360; 96374; 96375

== ENCOUNTER 2022-09-19 14:21 | Outpatient (CLI) | payer MEDICARE, MEDICAID ==
[~2022-09-19] VITALS: Wt 56.0 kg
[~2022-09-19 14:21] MED LIST changes: -NS IV 1000 ML 1,000 ML IV NR; -NS IV 1000 ML 1,000 ML ONE; -PROMETHAZINE INJ 25 MG/ML (PHENERGAN) AMP IV PRN; -PROMETHAZINE INJ 25 MG/ML (PHENERGAN) AMP ONE; -fentaNYL INJ 100 MCG/2 ML AMP IV PRN; -fentaNYL INJ 100 MCG/2 ML AMP ONE
[2022-09-19] MEDS ORDERED: NS IV 1000 ML 1,000 ML ONE (14:52)
[2022-09-19] MEDS ORDERED: fentaNYL INJ 100 MCG/2 ML AMP IV PRN (15:00)
[2022-09-19] MEDS ORDERED: NS IV 1000 ML 1,000 ML IV SCH (15:00)
[2022-09-19] MEDS ORDERED: PROMETHAZINE INJ 25 MG/ML (PHENERGAN) AMP IV PRN (15:00)
[2022-09-19 15:15] VITALS: BP 0/0
== END 2022-09-19 15:55 ==
LOC: SDC 14:21
PROVIDERS: ATTEND Nurse Practitioner Family
DX: K50.10 Crohn's disease of large intestine without complications (principal)
CPT/HCPCS: 96360; 96374; 96375

== ENCOUNTER 2022-10-22 12:59 | Outpatient (CLI) | payer MEDICARE, MEDICAID ==
[2022-10-22 13:10] VITALS: BP 137/8
[2022-10-22] MEDS ORDERED: NS IV 1000 ML 1,000 ML IV NR (13:15)
[2022-10-22] MEDS ORDERED: fentaNYL INJ 100 MCG/2 ML AMP IV PRN (13:15)
[2022-10-22] MEDS ORDERED: PROMETHAZINE INJ 25 MG/ML (PHENERGAN) AMP IV PRN (13:15)
== END 2022-10-22 15:05 | disposition home or self-care (01) ==
LOC: SDC 12:59
PROVIDERS: ATTEND Nurse Practitioner Family
DX: K50.90 Crohn's disease, unspecified, without complications (principal)
CPT/HCPCS: 96360

== ENCOUNTER 2022-12-10 12:17 | Outpatient (CLI) | payer MEDICARE, MEDICAID ==
[~2022-12-10] VITALS: Ht 165.1 cm; Wt 59.0 kg
[2022-12-10] MEDS ORDERED: NS IV 1000 ML 2,000 ML ONE (12:28)
[2022-12-10] MEDS ORDERED: PROMETHAZINE INJ 25 MG/ML (PHENERGAN) AMP ONE (12:29)
[2022-12-10] MEDS: NS IV 1000 ML 1,000 ML IV SCH ×2 (13:00→14:05)
[2022-12-10] MEDS ORDERED: PROMETHAZINE INJ 25 MG/ML (PHENERGAN) AMP IVP ONE (13:15)
[2022-12-10 14:27] VITALS: BP 136/94
== END 2022-12-10 15:10 ==
LOC: SDC 12:17
PROVIDERS: ATTEND Family Medicine
DX: K50.90 Crohn's disease, unspecified, without complications (principal); E86.0 Dehydration
CPT/HCPCS: 96360; 96361; 96374; 96375

== ENCOUNTER 2023-01-26 03:54 | Emergency (ER) | payer MEDICARE, MEDICAID ==
[~2023-01-26] VITALS: Ht 165 cm; Wt 56.0 kg
[2023-01-26] MEDS ORDERED: PANTOPRAZOLE 40 MG (PROTONIX) VIAL IV ONE (04:15)
[2023-01-26] MEDS ORDERED: LACTATED RINGERS 1,000 ML IV ONE (04:15)
[2023-01-26] MEDS ORDERED: ONDANSETRON 4 MG/2 ML (SDV) Z0FRAN IVP ONE (04:15)
--- NOTE | 2023-01-26 04:36 | ED GI ---
General Chief Complaint: Abdominal/GI Problems Stated Complaint: VOMITING Source of Information: Patient, Old Records History of Present Illness Date Seen by Provider: Jan 26, 2023 Time Seen by Provider: 04:08 Initial Comments PT ARRIVES VIA POV FROM HOME WITH ADULT MALE PT WOKE UP AT 0100 WITH NAUSEA AND "MASSIVE VOMITING" NO ABDOMINAL PAIN NO DIARRHEA NO FEVER PT WAS FINE ALL DAY, HAVE BEEN AT [facility] ALL DAY NO KNOWN SICK CONTACTS. OTHERS ATE SAME THING PT AND ARE NOT ILL. PT HAS HISTORY OF CROHN'S AND IBS AND GASTROPARESIS. SHE HAD BEEN ON HUMIRA, BUT DID NOT HELP AND THEN LOST INSURANCE, AND HAS NOT BEEN ON IT FOR A COUPLE OF YEARS. SHE HAS NOT BEEN ON ANY MEDICATIONS FOR CROHN'S OR GI MEDICATIONS SINCE THEN. SHE HAS NOT SEEN GI FOR A COUPLE OF YEARS, SINCE LOSING HER INSURANCE. SHE HAS NOT HAD ANY GI SURGERIES, AND NEVER HAD A BOWEL OBSTRUCTION. SHE ALSO HAS HTN, ANXIETY/DEPRESSION SHE HAS HAD PRIOR APPENDECTOMY, HYSTERECTOMY/BSO, . NO SMOKING OR ALCOHOL OR DRUG USE PCP: DR. SEARS GI: DR. RODGERS IN [place] Allergies and Home Medications Allergies Coded Allergies: morphine (Unverified Adverse Reaction, Unknown, ITCHING, TAKES LORTAB AT HOME, 04/28/14) CAN HAVE JUST REQUIRES BENADRYL AT SAME TIME Patient Home Medication List Home Medication List Reviewed: Yes ALPRAZolam (Xanax Tablet) 0.25 Mg Tablet, 0.125-0.25 MG PO TID PRN for ANXIETY, (Reported) Entered as Reported by: ELISA HEDRICK on 10/18/17 1645 Budesonide (Uceris) 9 Mg Tabdr...er, 9 MG PO DAILY, (Reported) Entered as Reported by: ELVI OAKES on 12/15/15 1604 Cholestyramine/Aspartame (Questran Light Powder) 210 Gm Powder, 210 GM PO DAILY Prescribed by: KYLER SEARS on 10/22/17 1450 Famotidine (Famotidine) 20 Mg Tablet, 20 MG PO BID Prescribed by: KYLER SEARS on 10/22/17 1450 Fentanyl (Fentanyl Patch 25 MCG) 1 Each Patch.td72, 25 MCG TD Q72H, (Reported) Entered as Reported by: ELISA HEDRICK on 10/18/17 1645 Fentanyl (Duragesic Patch 12MCG) 12 Mcg Patch, 12 MCG TD Q72H Prescribed by: KYLER SEARS on 10/22/17 1450 Mesalamine (Lialda) 1.2 Gm Tablet.dr, 2 TAB PO BID, (Reported) Entered as Reported by: ELVI OAKES on 12/15/15 1604 Methylprednisolone (Methylprednisolone Dose Pack) 4 Mg Tab.ds.pk, 4 MG PO UD Prescribed by: MICHELLE HUFFMAN on 12/30/20 182 Metoclopramide HCl (Metoclopramide HCl) 10 Mg Tablet, 10 MG PO ACHS, (Reported) Entered as Reported by: ELISA HEDRICK on 10/18/17 1645 Metronidazole (Flagyl) 500 Mg Tablet, 500 MG PO TID Prescribed by: KYLER SEARS on 10/22/17 1450 Ondansetron (Ondansetron Odt) 8 Mg Tab.rapdis, 8 MG PO Q6H Prescribed by: MARCELA BARAJAS on 01/26/23 0516 Oxycodone HCl (Oxycodone HCl) 15 Mg Tablet, 15 MG PO EVERY 4-6 HOURS PRN for PAIN-SEVERE, (Reported) Entered as Reported by: ELISA HEDRICK on 10/18/17 1645 Pantoprazole Sodium (Protonix) 40 Mg Tablet.dr, 40 MG PO DAILY Prescribed by: MARCELA BARAJAS on 01/26/23 05 Promethazine HCl (Promethazine Tablet) 25 Mg Tablet, 25 MG PO TID PRN for NAUSEA/VOMITING Prescribed by: MICHELLE HUFFMAN on 12/30/20 182 Review of Systems Review of Systems Constitutional: no symptoms reported Respiratory: No Symptoms Reported Cardiovascular: No Symptoms Reported Gastrointestinal: See HPI; Denies Abdominal Pain, Denies Diarrhea; Nausea, Vomi ting Genitourinary: No Symptoms Reported Musculoskeletal: no symptoms reported Skin: no symptoms reported Psychiatric/Neurological: No Symptoms Reported Endocrine: No Symptoms Reported Hematologic/Lymphatic: No Symptoms Reported Past Uysrarf-Qljswu-Tflhrb Hx Patient Social History Tobacco Use?: No Substance use?: Yes Substance type: Marijuana Alcohol Use?: No Pt feels they are or have been: No Immunizations Up To Date Tetanus Booster (TDap): Unknown PED Vaccines UTD: No Seasonal Allergies Seasonal Allergies: No Past Medical History Surgery/Hospitalization HX: APPENDECTOMY, , HYSTERECTOMY, T/A CHRONS, HTN, SANCHEZ, IBS, GASTROPARESIS, ANXIETY, DEPRESSION Surgeries: Yes (DXLS WITH OOPHORECTOMY, KNEE SCOPE, FOOT) Abdominal, Adenoidectomy, Appendectomy, Section, Hysterectomy, Oophorectomy, Orthopedic, Tonsillectomy Respiratory: No Cardiac: Yes Hypertension Neurological: Yes Headaches /Migraines Reproductive Disorders: Yes Female Reproductive Disorders: Denies, 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 Sexually Transmitted Disease: No HIV/AIDS: No Genitourinary: No Gastrointestinal: Yes (gastroparesis; CHRONIC OPIATE USE FOR CHRONIC ABD PAIN ) Colitis, Crohns Disease, Irritable Bowel Musculoskeletal: No Endocrine: No HEENT: No Loss of Vision: Denies Hearing Impairment: Denies Cancer: No Psychosocial: Yes Anxiety, Depression Integumentary: No Blood Disorders: No Adverse Reaction/Blood Tranf: No Family Medical History Congestive heart failure GRANDPARENTS Family history: Arthritis 03 MOTHER GRANDPARENTS Family history: Diabetes mellitus GRANDPARENTS Family history: Hypertension 09 BROTHER Myocardial infarction GRANDPARENTS No Family History of: Abdominal aortic aneurysm Cancer Family history: Gastrointestinal disease Family history: Thyroid disorder Hereditary disease History of - respiratory disease Heart Disease, CAD Over 55 Years Old, Diabetes, Hypertension SOCIAL HISTORY: -DENIES SMOKING. -ETOH--DENIES USE -DRUGS--DENIES USE BUT UDS + FOR THC, CHRONIC OPIATE USE FOR CHRONIC ABDOMINAL PAIN. Physical Exam Vital Signs Vital Signs - First Documented 01/26/23 04:07 Temp 36.8 Pulse 118 Resp 20 B/P (MAP) 154/89 (110) Pulse Ox 97 O2 Delivery Room Air Capillary Refill : Height/Weight/BMI Height: 5'5.00" Weight: 140lbs. 0.0oz. [id number]; 20.00 BMI Method:Stated General Appearance: WD/WN, other (ACTIVELY VOMITING ON ARRIVAL--NORMAL APPEARING, CLEAR/WATERY YELLOW EMESIS. 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, no motor/sensory deficits, a lert, normal mood/affect, oriented x 3 Skin: normal color, warm/dry Progress/Results/Core Measures Results/Orders Lab Results Laboratory Tests Test 01/26/23 04:13 01/26/23 05:12 01/26/23 05:35 Range/Units Sodium Level 140 135-145 MMOL/L Potassium Level 3.6 3.6-5.0 MMOL/L Chloride Level 105 98-107 MMOL/L Carbon Dioxide Level 17 L 21-32 MMOL/L Anion Gap 18 H 5-14 MMOL/L Blood Urea Nitrogen 10 7-18 MG/DL Creatinine 0.77 0.60-1.30 MG/DL Estimat Glomerular Filtration Rate 98 BUN/Creatinine Ratio 13 Glucose Level 134 H 70-105 MG/DL Calcium Level 10.0 8.5-10.1 MG/DL Corrected Calcium 9.6 8.5-10.1 MG/DL Magnesium Level 2.5 H 1.6-2.4 MG/DL Total Bilirubin 0.2 0.1-1.0 MG/DL Aspartate Amino Transf (AST/SGOT) 50 H 5-34 U/L Alanine Aminotransferase (ALT/SGPT) 47 0-55 U/L Alkaline Phosphatase 198 H 40-136 U/L C-Reactive Protein High Sensitivity 1.83 H 0.00-0.50 MG/DL Total Protein 8.6 H 6.4-8.2 GM/DL Albumin 4.5 3.2-4.5 GM/DL Amylase Level 21 L 25-125 U/L Lipase 19 8-78 U/L White Blood Count 9.0 4.3-11.0 10^3/uL Red Blood Count 4.96 3.80-5.11 10^6/uL Hemoglobin 14.4 11.5-16.0 g/dL Hematocrit 43 35-52 % Mean Corpuscular Volume 86 80-99 fL Mean Corpuscular Hemoglobin 29 25-34 pg Mean Corpuscular Hemoglobin Concent 34 32-36 g/dL Red Cell Distribution Width 13.3 10.0-14.5 % Platelet Count 294 130-400 10^3/uL Mean Platelet Volume 10.4 9.0-12.2 fL Immature Granulocyte % (Auto) 0 % Neutrophils (%) (Auto) 81 H 42-75 % Lymphocytes (%) (Auto) 8 L 12-44 % Monocytes (%) (Auto) 9 0-12 % Eosinophils (%) (Auto) 1 0-10 % Basophils (%) (Auto) 0 0-10 % Neutrophils # (Auto) 7.3 1.8-7.8 10^3/uL Lymphocytes # (Auto) 0.7 L 1.0-4.0 10^3/uL Monocytes # (Auto) 0.8 0.0-1.0 10^3/uL Eosinophils # (Auto) 0.1 0.0-0.3 10^3/uL Basophils # (Auto) 0.0 0.0-0.1 10^3/uL Immature Granulocyte # (Auto) 0.0 0.0-0.1 10^3/uL Erythrocyte Sedimentation Rate 16 0-20 MM/HR Urine Color YELLOW Urine Clarity CLEAR Urine pH 5.0 5-9 Urine Specific [place] >=1.030 1.016-1.022 Urine Protein NEGATIVE NEGATIVE Urine Glucose (UA) NEGATIVE NEGATIVE Urine Ketones NEGATIVE NEGATIVE Urine Nitrite NEGATIVE NEGATIVE Urine Bilirubin NEGATIVE NEGATIVE Urine Urobilinogen 0.2 < = 1.0 MG/DL Urine Leukocyte Esterase NEGATIVE NEGATIVE Urine RBC (Auto) NEGATIVE NEGATIVE Urine RBC NONE /HPF Urine WBC 2-5 /HPF Urine Squamous Epithelial Cells 25-50 H /HPF Urine Crystals PRESENT H /LPF Urine Amorphous Sediment MOD VILMA URATES H /LPF Urine Bacteria TRACE /HPF Urine Casts NONE /LPF Urine Mucus NEGATIVE /LPF Urine Culture Indicated NO Urine Opiates Screen POSITIVE H NEGATIVE Urine Oxycodone Screen POSITIVE H NEGATIVE Urine Methadone Screen NEGATIVE NEGATIVE Urine Propoxyphene Screen NEGATIVE NEGATIVE Urine Barbiturates Screen NEGATIVE NEGATIVE Ur Tricyclic Antidepressants Screen NEGATIVE NEGATIVE Urine Phencyclidine Screen NEGATIVE NEGATIVE Urine Amphetamines Screen NEGATIVE NEGATIVE Urine Methamphetamines Screen NEGATIVE NEGATIVE Urine Benzodiazepines Screen NEGATIVE NEGATIVE Urine Cocaine Screen NEGATIVE NEGATIVE Urine Cannabinoids Screen POSITIVE H NEGATIVE My Orders Orders - MARCELA BARAJAS DO Ed Iv/Invasive Line Start (01/26/23 04:09) Monitor-Rhythm Ecg Trace Only (01/26/23 04:09) Amylase (01/26/23 04:09) Cbc With Automated Diff (01/26/23 04:09) Comprehensive Metabolic Panel (01/26/23 04:09) Hs C Reactive Protein (01/26/23 04:09) Lipase (01/26/23 04:09) Magnesium (01/26/23 04:09) Ua Culture If Indicated (01/26/23 04:09) Erythrocyte Sedimentation Rate (01/26/23 04:09) Ed Iv/Invasive Line Start (01/26/23 04:09) Lactated Ringers (Lr 1000 Ml Iv Solution (01/26/23 04:15) Ondansetron Injection (Zofran Injectio (01/26/23 04:15) Pantoprazole Injection (Protonix Injecti (01/26/23 04:15) Drug Screen Stat (Urine) (01/26/23 05:17) Medications Given in ED Vital Signs/I&O 01/26/23 01/26/23 04:07 06:06 Temp 36.8 36.8 Pulse 118 96 Resp 20 16 B/P (MAP) 154/89 (110) 126/96 Pulse Ox 97 98 O2 Delivery Room Air Room Air Progress Progress Note : Progress Note VITALS ON ARRIVAL: TEMP 36.8, HR 118, RR 20, BP 154/89, O2 SAT 97% ON ROOM AIR GIVEN: -IV FLUIDS -ZOFRAN -PROTONIX LABS INCLUDING CBC, CMP, AMYLASE/LIPASE, UA ORDERED. PT STATES SHE IS ALWAYS A DIFFICULT IV STICK. -CBC IS NORMAL -CMP WITH NORMAL ELECTROLYTES, NORMAL BUN/CR, GLU 134, LFT'S UNREMARKABLE, CRP 1.83. AMYLASE/LIPASE NORMAL -UA CLEAR -UDS + FOR THC, OPIATES/OXYCODONE NAUSEA RESOLVED WITH THE ABOVE MEDICATIONS GIVEN ICE CHIPS. PT ABLE TO KEEP ICE CHIPS DOWN. NO PAIN AT ANY TIME, AND NO ABDOMINAL TENDERNESS. NO DIARRHEA NO FEVER. DISCUSSED OBTAINING CT SCAN WITH PT AND SHE AGREES, THAT SHE IS NOT HAVING PAIN OR FEVER OR DIARRHEA OR ABNORMAL CHEMISTRY PANEL, OPTS NOT TO HAVE CT SCAN DONE AT THIS TIME. VITALS STABLE, AFEBRILE, NO HYPOTENSION, HR < 100 NO DETERIORATION IN PT'S CONDITION DURING ER STAY Departure Impression Primary Impression: Nausea and vomiting Additional Impressions: Cannabis use disorder Chronic prescription opiate use Disposition: HOME, SELF-CARE Condition: Improved Departure-Patient Inst. Referrals: KYLER SEARS MD (PCP/Family) Primary Care Physician Patient Instructions: Nausea and Vomiting, Adult Add. Discharge Instructions: CLEAR LIQUIDS--WATER, BROTH, JELLO, GATORADE WHEN YOUR NAUSEA IS GONE, AND YOU ARE TOLERATING CLEAR LIQUIDS, ADD BRATS DIET TO CLEAR LIQUIDS--BANANAS, RICE, APPLESAUCE, TOAST, SALTINES FOLLOW UP WITH DR. SEARS IF SYMPTOMS PERSIST, RETURN TO ER IF SYMPTOMS WORSEN All discharge instructions reviewed with patient and/or family. Voiced understanding. Scripts Ondansetron (Ondansetron Odt) 8 Mg Tab.rapdis 8 MG PO Q6H, #10 TAB Prov: MARCELA BARAJAS DO 01/26/23 Pantoprazole Sodium (Protonix) 40 Mg Tablet. 40 MG PO DAILY, #15 TAB Prov: MARCELA BARAJAS DO 01/26/23 MARCELA BARAJAS DO Jan 26, 2023 04:36
[2023-01-26 04:44] LABS: ALBUMIN 4.5 GM/DL (3.2-4.5); POTASSIUM 3.6 MMOL/L (3.6-5.0)
[2023-01-26 04:46] LABS: TOTAL PROTEIN 8.6 GM/DL (6.4-8.2)
[2023-01-26 04:48] LABS: BILIRUBIN,TOTAL 0.2 MG/DL (0.1-1.0)
[2023-01-26 04:50] LABS: CREATININE SERUM 0.77 MG/DL (0.60-1.30)
[2023-01-26 04:53] LABS: MAGNESIUM 2.5 MG/DL (1.6-2.4)
[2023-01-26] MEDS ORDERED: ONDA8TAB13 PO (05:16)
[2023-01-26] MEDS ORDERED: PANT40TA2 PO (05:16)
[2023-01-26 05:19] LABS: BASOPHILS % (AUTO) 0 % (0-10); EOSINOPHILS # (AUTO) 0.1 10^3/uL (0.0-0.3); EOSINOPHILS % (AUTO) 1 % (0-10); HEMATOCRIT 43 % (35-52); HEMOGLOBIN 14.4 g/dL (11.5-16.0); LYMPHOCYTES # (AUTO) 0.7 10^3/uL (1.0-4.0); LYMPHOCYTES % (AUTO) 8 % (12-44); MEAN CORPUSCULAR HEMOGLOBIN 29 pg (25-34); MEAN CORPUSCULAR HGB CONC 34 g/dL (32-36); MEAN CORPUSCULAR VOLUME 86 fL (80-99); MEAN PLATELET VOLUME 10.4 fL (9.0-12.2); MONOCYTES # (AUTO) 0.8 10^3/uL (0.0-1.0); MONOCYTES % (AUTO) 9 % (0-12); NEUTROPHILS # (AUTO) 7.3 10^3/uL (1.8-7.8); NEUTROPHILS % (AUTO) 81 % (42-75); PLATELET COUNT 294 10^3/uL (130-400)
[2023-01-26 05:43] LABS: BILIRUBIN,URINE NEGATIVE (NEGATIVE); CLARITY,URINE CLEAR; COLOR,URINE YELLOW; GLUCOSE, URINE (UA) NEGATIVE (NEGATIVE); KETONES,URINE NEGATIVE (NEGATIVE); LEUKOCYTE ESTERASE ,URINE NEGATIVE (NEGATIVE); NITRITE,URINE NEGATIVE (NEGATIVE); PROTEIN,URINE NEGATIVE (NEGATIVE)
[2023-01-26 05:54] LABS: ERYTHROCYTE SEDIMENTATION RATE 16 MM/HR (0-20)
[2023-01-26 05:57] LABS: AMPHETAMINE SCREEN, URINE NEGATIVE (NEGATIVE); BARBITURATE SCREEN URINE NEGATIVE (NEGATIVE); BENZODIAZEPINES SCREEN URINE NEGATIVE (NEGATIVE); CANNABINOID SCREEN, URINE POSITIVE (NEGATIVE); COCAINE SCREEN URINE NEGATIVE (NEGATIVE); METHADONE STAT NEGATIVE (NEGATIVE); OPIATE SCREEN URINE POSITIVE (NEGATIVE); TRICYCLIC ANTIDEPRESSANTS SCRE NEGATIVE (NEGATIVE)
[2023-01-26 05:58] LABS: OXYCODONE STAT POSITIVE (NEGATIVE); PROPOXYPHENE STAT NEGATIVE (NEGATIVE)
[2023-01-26 06:05] LABS: AMORPHOUS SEDIMENT,UR MOD AMOR URATES /LPF; BACTERIA,URINE TRACE /HPF; SQUAMOUS EPITHELIAL CELL,UR 25-50 /HPF
[2023-01-26 06:06] VITALS: BP 126/96
== END 2023-01-26 06:09 | disposition home or self-care (01) ==
LOC: EDUNIT# 03:54 → ER 03:57
DX: F12.90 Cannabis use, unspecified, uncomplicated (principal); F11.90 Opioid use, unspecified, uncomplicated; R11.2 Nausea with vomiting, unspecified
CPT/HCPCS: 36415; 80053; 80306; 81000; 82150; 83690; 83735; 85025; 85652; 86141

== ENCOUNTER → 2023-06-26 | Outpatient (CLI) | payer MEDICAID, MEDICARE ==
[~2023-06-26] MED LIST changes: +ONDA8TAB13 PO; +PANT40TA2 PO
--- NOTE | 2023-06-26 11:17 | Diagnostic Imaging Report ---
INDICATION: Routine screening. COMPARISON: No prior mammograms are available for comparison. This is a baseline study. TECHNIQUE: 2D and 3D bilateral screening mammography was performed with CAD. FINDINGS: Both breasts are heterogeneously dense, limiting the sensitivity of mammography. No mass or malignant-appearing microcalcifications are seen. The axillae are unremarkable. IMPRESSION: No mammographic features suspicious for malignancy are identified. ACR BI-RADS Category 1: Negative. Result letter will be mailed to the patient. Note: At least 10% of breast cancer is not imaged by mammography. Dictated by: Dictated on workstation # [id number]
== END ==
LOC: RAD 09:55
PROVIDERS: ATTEND Physician Assistant
DX: Z12.31 Encounter for screening mammogram for malignant neoplasm of breast (principal)
CPT/HCPCS: 77063; 77067